=== PATIENT | male | born 1955 | race Caucasian/White ===

== ENCOUNTER 2017-08-28 08:12 | Emergency (ER) | payer OTHER ==
[2017-08-28] MEDS ORDERED: Ondansetron 4 MG/2 ML SDV IVPUSH ONE (08:16)
[2017-08-28] MEDS ORDERED: Promethazine 12.5 MG in Sodium Chloride 0.9% 50 ML IV STA (08:32)
--- NOTE | 2017-08-28 08:37 | EDM.PDOC ---
ED HPI GENERAL MEDICAL PROBLEM - General Chief Complaint: Syncope Stated Complaint: VOMITING Time Seen by Provider: 08/28/17 08:12 Source of Information: Reports: Patient, EMS, Family History Limitations: Reports: Altered Mental Status - History of Present Illness INITIAL COMMENTS - FREE TEXT/NARRATIVE: 62 y.o.w.m with H/O Hemophilia and CAD, is on Plavix. He was in the bathroom at midnight, passed out at about 3 am, fell and "bumped" his head. Son was called, tylenol was given. EMS was called at 7.30 am (?)He was brought by EMS due to severe nausea and vomiting. 4 mg of Zofran were given on Rout. No Chest pain. Pt had an appointment with cardiology today for f/u. As the pt arrived here in the ed by EMS, he was in his right lateral position and vomiting, ECG, ems., showed NSR. CT head was ordered STAT. BP was 138/72 plulse 72 temp 36.4 RR 22 Pulse ox 97% on RA, Family was present. Onset: Today Onset Date: 08/28/17 Onset Time: 07:00 Duration: Hour(s): Location: Reports: Head Quality: Reports: Other (N/V) Severity: Severe Improves with: Reports: Medication Worsens with: Reports: Movement Context: Reports: Trauma (Fell in the bathroom and hit his head, is on Plavix) Associated Symptoms: Reports: Headaches, Nausea/Vomiting Left Frontal Head Pain Score (Numeric/FACES): 8 Bilateral Abdominal Pain Score (Numeric/FACES): 9 - Related Data Allergies Allergy/AdvReac Type Severity Reaction Status Date / Time No Known Allergies Allergy Verified 08/28/17 08:26 Home Meds: Home Meds Aspirin [Halfprin] 81 mg PO DAILY 08/28/17 [History] Clopidogrel Bisulfate [Clopidogrel] 75 mg PO DAILY 08/28/17 [History] Isosorbide Mononitrate [Isosorbide Mononitrate ER] 30 mg PO DAILY 08/28/17 [ History] amLODIPine [Norvasc] 5 mg PO DAILY 08/28/17 [History] atorvaSTATin [Lipitor] 40 mg PO BEDTIME 08/28/17 [History] ED ROS GENERAL - Review of Systems Review Of Systems: Unable To Obtain ED EXAM, NEURO - Physical Exam Exam: See Below Exam Limited By: Altered Mental Status General Appearance: Alert, WD/WN, Lethargic Eye Exam: Bilateral Eye: Abnormal EOM Ears: Normal External Exam Nose: Normal Inspection Throat/Mouth: Normal Lips, Normal Oropharynx, No Airway Compromise, Other (pos gag reflex) Head Exam: Facial Swelling Neck: Normal Inspection, Supple, Non-Tender Respiratory/Chest: No Respiratory Distress, Lungs Clear, Normal Breath Sounds, No Accessory Muscle Use, Chest Non-Tender Cardiovascular: Normal Peripheral Pulses, Regular Rate, Rhythm, No Edema, No Gallop GI/Abdominal: Normal Bowel Sounds, Soft, Non-Tender, No Organomegaly, No Distention (Male) Exam: Deferred Rectal (Males) Exam: Deferred Neurological: Alert, Other (Cont N/V) Back Exam: Normal Inspection, Full Range of Motion Extremities: Normal Inspection, Normal Range of Motion, Non-Tender Psychiatric: Normal Affect, Normal Mood Skin Exam: Warm, Dry, Intact, Normal Color, No Rash Course - Vital Signs Text/Narrative:: 62 y.o.w.m with H/O Hemophilia and CAD, is on Plavix. He was in the bathroom at midnight, passed out at about 3 am, fell and "bumped" his head. Son was called, tylenol was given. EMS was called at 7.30 am (?)He was brought by EMS due to severe nausea and vomiting. 4 mg of Zofran were given on Rout. No Chest pain. Pt had an appointment with cardiology today for f/u. As the pt arrived here in the ed by EMS, he was in his right lateral position and vomiting, ECG, ems., showed NSR. CT head was ordered STAT. BP was 138/72 plulse 72 temp 36.4 RR 22 Pulse ox 97% on RA, Family was present. PE: WNWN W M with intermit vomiting in right sided lateral, stable, position. EOMI. Pos GAG, limited neuro exam. Labs: CBC BMP WNL with a Na of 139 and potassium of 3.6 INR 1.03 Imaging: CT head: supratentorial, large SD bleed with 7 mm Masseffect. CXR ETT in good position as per RAD Impression: Syncope, large Subdural bleed, left side, Masseffect 7 mm. H/O CAD with 5 stents placements Tx: Intubation, NG tube, FFP, Mannitol, Propophol, NS, 2 IV lines were in place 8.[address] Byrd, Neurosurgeon, [facility]: Plts, Factor 7 (not available), FFB and 100 gms of Mannitol 9.[address] Vargas, Heavy Mobile Equipment Operator, [facility]: Accepted the pt for admission to ICU Reexam: Improved, pt was intubated, NG tube was placed with low vol suction, family was present and kept UTD. Plan: Transfer to [facility]. Last Recorded V/S: Last Vital Signs Temp 36.4 C 08/28/17 09:24 Pulse 78 08/28/17 09:50 Resp 16 08/28/17 09:50 BP 120/74 08/28/17 09:50 Pulse Ox 100 08/28/17 09:50 - Orders/Labs/Meds Labs: Laboratory Tests 08/28/17 08/28/17 08/28/17 Range/Units 08:34 08:35 08:35 WBC 10.8 (4.5-12.0) X10-3/uL RBC 4.75 (4.30-5.75) x10(6)uL Hgb 13.6 (11.5-15.5) g/dL Hct 40.8 (30.0-51.3) % MCV 85.9 (80-96) fL MCH 28.6 (27.7-33.6) pg MCHC 33.3 (32.2-35.4) g/dL RDW 12.1 (11.5-15.5) % Plt Count 143 (125-369) X10(3)uL MPV 8.4 (7.4-10.4) fL Neut % (Auto) 83.4 H (46-82) % Lymph % (Auto) 8.6 L (13-37) % [place] % (Auto) 5.7 (4-12) % Eos % (Auto) 0 L (1.0-5.0) % Baso % (Auto) 2 (0-2) % Neut # (Auto) 9.1 H (1.6-8.3) # Lymph # (Auto) 0.9 (0.6-5.0) # [place] # (Auto) 0.6 (0.0-1.3) # Eos # (Auto) 0.0 (0.0-0.8) # Baso # (Auto) 0.2 (0.0-0.2) # PT 10.8 (8.7-11.1) INR 1.07 (0.89-1.13) Sodium (135-145) mmol/L Potassium (3.5-5.3) mmol/L Chloride (100-110) mmol/L Carbon Dioxide (21-32) mmol/L BUN (7-18) mg/dL Creatinine (0.70-1.30) mg/dL Est Cr Clr Drug Dosing mL/min Estimated GFR (MDRD) (>60) BUN/Creatinine Ratio (9-20) Glucose (80-116) mg/dL Lactic Acid (0.4-2.2) mmol/L Calcium (8.6-10.2) mg/dL Total Bilirubin (0.1-1.3) mg/dL Direct Bilirubin (0.10-0.20) mg/dL AST (5-25) IU/L ALT (12-36) U/L Alkaline Phosphatase (56-112) IU/L Troponin I (<0.017-0.056) ng/mL NT-Pro-B Natriuret Pep (<=125) pg/mL Total Protein (6.0-8.0) g/dL Albumin (3.2-4.6) g/dL Amylase (25-115) U/L Blood Type AB POSITIVE Gel Antibody Screen Negative 08/28/17 08/28/17 08/28/17 Range/Units 08:35 08:35 08:35 WBC (4.5-12.0) X10-3/uL RBC (4.30-5.75) x10(6)uL Hgb (11.5-15.5) g/dL Hct (30.0-51.3) % MCV (80-96) fL MCH (27.7-33.6) pg MCHC (32.2-35.4) g/dL RDW (11.5-15.5) % Plt Count (125-369) X10(3)uL MPV (7.4-10.4) fL Neut % (Auto) (46-82) % Lymph % (Auto) (13-37) % [place] % (Auto) (4-12) % Eos % (Auto) (1.0-5.0) % Baso % (Auto) (0-2) % Neut # (Auto) (1.6-8.3) # Lymph # (Auto) (0.6-5.0) # [place] # (Auto) (0.0-1.3) # Eos # (Auto) (0.0-0.8) # Baso # (Auto) (0.0-0.2) # PT (8.7-11.1) INR (0.89-1.13) Sodium 139 (135-145) mmol/L Potassium 3.6 (3.5-5.3) mmol/L Chloride 104 (100-110) mmol/L Carbon Dioxide 20 L (21-32) mmol/L BUN 17 (7-18) mg/dL Creatinine 0.9 (0.70-1.30) mg/dL Est Cr Clr Drug Dosing 94.94 mL/min Estimated GFR (MDRD) > 60 (>60) BUN/Creatinine Ratio 18.9 (9-20) Glucose 200 H (80-116) mg/dL Lactic Acid 2.5 H (0.4-2.2) mmol/L Calcium 9.3 (8.6-10.2) mg/dL Total Bilirubin 0.5 (0.1-1.3) mg/dL Direct Bilirubin 0.10 (0.10-0.20) mg/dL AST 21 (5-25) IU/L ALT 33 (12-36) U/L Alkaline Phosphatase 95 (56-112) IU/L Troponin I < 0.017 L (<0.017-0.056) ng/mL NT-Pro-B Natriuret Pep 393 H (<=125) pg/mL Total Protein 7.4 (6.0-8.0) g/dL Albumin 3.8 (3.2-4.6) g/dL Amylase 40 (25-115) U/L Blood Type Gel Antibody Screen Meds: Medications Discontinued Medications Generic Name Dose Route Start Last Admin Trade Name Freq PRN Reason Stop Dose Admin Fentanyl 100 mcg 08/28/17 09:17 08/28/17 09:17 Sublimaze IVPUSH 08/28/17 09:18 100 mcg ONETIME ONE Administration Promethazine HCl 12.5 mg/ 50.5 mls @ 200 mls/hr 08/28/17 08:32 08/28/17 08:51 Sodium Chloride IV 08/28/17 08:47 200 mls/hr ONETIME STA Administration Sodium Chloride 1,000 mls @ 125 mls/hr 08/28/17 08:45 08/28/17 08:59 Normal Saline IV 125 mls/hr ASDIRECTED MELINDA Administration Mannitol 500 mls @ 500 mls/hr 08/28/17 10:00 08/28/17 10:07 Mannitol 20% IV 08/28/17 10:59 500 mls/hr ONETIME ONE Administration Sodium Chloride 1,000 mls @ 125 mls/hr 08/28/17 12:00 08/28/17 09:50 Normal Saline IV 125 mls/hr ASDIRECTED MELINDA Administration Midazolam HCl 2 mg 08/28/17 09:17 08/28/17 09:17 Versed 1 Mg/Ml IVPUSH 08/28/17 09:18 2 mg ONETIME ONE Administration Ondansetron HCl 4 mg 08/28/17 08:16 08/28/17 08:20 Zofran IVPUSH 08/28/17 08:17 4 mg ONETIME ONE Administration Propofol 160 mg 08/28/17 09:17 08/28/17 09:17 Diprivan 20 Ml IVPUSH 08/28/17 09:18 160 mg ONETIME ONE Administration Rocuronium Williamson 0 mg 08/28/17 09:17 08/28/17 09:17 Rocuronium Williamson IVPUSH 08/28/17 09:18 50 mg ONETIME ONE Administration Departure - Departure Time of Disposition: 11:00 Disposition: DC/Tfer to Acute Hospital 02 Condition: Poor Clinical Impression: Subdural bleeding - Discharge Information Referrals: PCP,Not In Area [Primary Care Provider] - Forms: ED Department Discharge
[2017-08-28] MEDS ORDERED: Sodium Chloride 0.9% 1,000 ML IV SCH ×2 (08:45→12:00)
[2017-08-28] MEDS ORDERED: Succinylcholine 200 MG/10 ML MDV IV ONE (09:15)
[2017-08-28] MEDS ORDERED: Midazolam 1 MG/ML 2 ML SDV IVPUSH ONE (09:17)
[2017-08-28] MEDS ORDERED: fentaNYL 100 MCG/2 ML SDV IVPUSH ONE (09:17)
[2017-08-28] MEDS ORDERED: Rocuronium Bromide 50 MG/5 ML Syringe IVPUSH ONE (09:17)
[2017-08-28] MEDS ORDERED: Propofol 200 MG/20 ML SDV IVPUSH ONE (09:17)
[2017-08-28] MEDS ORDERED: Mannitol 12.5 GM/50 ML SDV IV STA (09:39)
[2017-08-28] MEDS ORDERED: [UNRECOGNIZED DRUG - OTHER] IV SCH (09:50)
[2017-08-28] MEDS ORDERED: Mannitol 500 ML IV ONE (10:00)
--- NOTE | 2017-08-28 10:36 | CR ---
INDICATION: Endotracheal tube placement. CHEST: An AP supine view of the chest was obtained for tube placement 2016 and compared with 12/02/2009, now revealing an endotracheal tube in adequate position at the level of the clavicular-manubrial joints. Poor inspiration is noted. A definite active infiltrate or effusion was not identified. IMPRESSION: Endotracheal tube in satisfactory position. Report was called to Anamaria in ER at 0938 hours, 08/28/2017. IMANID
[2017-08-28] MEDS ORDERED: Sodium Chloride 0.9% 250 ML IV SCH (12:30)
== END 2017-08-28 10:09 ==
LOC: FB.ED 08:12
DX: S06.5X0A Traumatic subdural hemorrhage without loss of consciousness, initial encounter (principal); Z79.82 Long term (current) use of aspirin; Z79.899 Other long term (current) drug therapy; W19.XXXA Unspecified fall, initial encounter
CPT/HCPCS: 36415; 36430; 70450; 71010; 72125; 80048; 80076; 82150; 83605; 83880; 84484; 85025; 85610; 86850; 86900; 86901; 96361; 96374; 96375; 99285; J2250; J2405; J2550; J2704; J3010; J7040; J7050; P9017; 96365; J0330

== ENCOUNTER 2017-10-04 08:50 | Inpatient (IN) | payer MEDICAID, OTHER ==
[2017-10-04] MEDS: Acetaminophen/Butalbital/Caffeine 325-50-40 MG Tab PO PRN (15:43)
[2017-10-04] MEDS: atorvaSTATin 40 MG Tab PO SCH (18:55)
[2017-10-04] MEDS: levETIRAcetam 500 MG Tab PO SCH (21:32)
[2017-10-04] MEDS: Metoprolol Tartrate 25 MG Tab PO SCH (21:33)
[2017-10-04] MEDS: Formoterol/Mometasone 200-5 MCG 8.8 GM Inhaler IH SCH (21:35)
[2017-10-05] MEDS: Aspirin 81 MG Tab.Chew PO SCH (08:36)
[2017-10-05] MEDS: Formoterol/Mometasone 200-5 MCG 8.8 GM Inhaler IH SCH ×2 (08:36→20:20)
[2017-10-05] MEDS: Isosorbide Mononitrate 30 MG Tab.ER PO SCH (08:38)
[2017-10-05] MEDS: Tamsulosin 0.4 MG Cap.ER PO SCH (08:38)
[2017-10-05] MEDS: levETIRAcetam 500 MG Tab PO SCH ×2 (08:39→20:21)
[2017-10-05] MEDS: Metoprolol Tartrate 25 MG Tab PO SCH ×2 (08:39→20:29)
[2017-10-05] MEDS: Clopidogrel 75 MG Tab PO SCH (08:40)
[2017-10-05] MEDS: amLODIPine 2.5 MG Tab PO SCH (08:40)
[2017-10-05] MEDS: Finasteride 5 MG Tab PO SCH (08:41)
[2017-10-05] MEDS: Acetaminophen/Butalbital/Caffeine 325-50-40 MG Tab PO PRN ×3 (08:49→20:37)
--- NOTE | 2017-10-05 10:01 | PCM.HP ---
H&P History of Present Illness - General Date of Service: 10/05/17 Admit Problem/Dx: Admission Diagnosis/Problem Admission Diagnosis/Problem Subdural hematoma Source of Information: Patient, Old Records History Limitations: Reports: No Limitations - History of Present Illness Initial Comments - Free Text/Narative: Patient admitted for rehabilitation after craniotomy from subdural hematoma. Was admitted to [facility] for evacuation of subdural hematoma after he fell at home and bumped his head. He has a history of CAD,with a drug leuting stent in July, hemophilia- that are stable previously Plavix. Patient underwent evaluation and hemicraniotomy on 28 August. Postoperatively he was weak has dysphagia and was admitted initially to the rehabilitation unit in [facility] and now being admitted here for swing bed with some physical and occupational needs. left head Pain Score (Numeric/FACES): 5 - Related Data Allergies/Adverse Reactions: Allergies Allergy/AdvReac Type Severity Reaction Status Date / Time No Known Allergies Allergy Verified 10/04/17 13:07 Home Medications: Home Meds Clopidogrel Bisulfate [Clopidogrel] 75 mg PO DAILY 08/28/17 [History] Isosorbide Mononitrate [Isosorbide Mononitrate ER] 30 mg PO DAILY 08/28/17 [ History] atorvaSTATin [Lipitor] 40 mg PO WITHDINNER 08/28/17 [History] Amitriptyline [Elavil] 50 mg PO BEDTIME 10/04/17 [History] Aspirin 81 mg PO DAILY 10/04/17 [History] Finasteride 5 mg PO DAILY 10/04/17 [History] Fluticasone/Salmeterol [Advair 250-50 Diskus] 1 puff IH BID 10/04/17 [History] Metoprolol Tartrate 12.5 mg PO BID 10/04/17 [History] Tamsulosin [Flomax] 0.4 mg PO DAILY 10/04/17 [History] amLODIPine Besylate [Amlodipine Besylate] 2.5 mg PO DAILY 10/04/17 [History] levETIRAcetam [Keppra] 750 mg PO BID 10/04/17 [History] Past Medical History - Past Health History Medical/Surgical History: Denies Medical/Surgical History Cardiovascular History: Reports: Afib, CAD, High Cholesterol, [place], Stents, Other (See Below) Other Cardiovascular History: acute non-ST elevation [place]; bradycardia Respiratory History: Reports: COPD, SOB Other Respiratory History: Unknown Gastrointestinal History: Reports: Other (See Below) Other Gastrointestinal History: Unknown Genitourinary History: Reports: Other (See Below) Other Genitourinary History: urinary retention Other Musculoskeletal History: Unknown Neurological History: Reports: Head Trauma, Other (See Below) Other Neuro History: left Decompressive hemicraniectomy Psychiatric History: Reports: Other (See Below) Other Psychiatric History: Unknown Other Endocrine/Metabolic History: Prediabetes Hematologic History: Reports: Other (See Below) 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 Immunologic History: Reports: Other (See Below) Other Immunologic History: unknown Oncologic (Cancer) History: Reports: Other (See Below) Other Oncologic History: Unknown Dermatologic History: Reports: Other (See Below) Other Dermatologic History: Unknown - Infectious Disease History Infectious Disease History: Reports: Other (See Below) Other Infectious Disease History: unknown - Past Surgical History Other Cardiovascular Surgeries/Procedures: Pt had stents put in over Thanksgiving and a follow up appt was scheduled for today. Other Respiratory Surgeries/Procedures: Pt has history of smoking and COPD which led to stent placement. Social & Family History - Family History Family Medical History: Noncontributory - Tobacco Use Smoking Status *Q: Former Smoker Years of Tobacco use: 35 Packs/Tins Daily: 1 Used Tobacco, but Quit: No - Caffeine Use Caffeine Use: Reports: Soda Other Caffeine Use: 1 can of soda Caffeine Use Comment: Unknown - Recreational Drug Use Recreational Drug Use: No H&P Review of Systems - Review of Systems: Review Of Systems: ROS reveals no pertinent complaints other than HPI. Exam - Exam Exam: See Below - Vital Signs Vital Signs: Last Vital Signs Temp 97.4 F 10/05/17 04:35 Pulse 70 10/05/17 08:39 Resp 20 10/05/17 04:35 BP 103/74 10/05/17 08:40 Pulse Ox 97 10/05/17 04:35 Weight: 83.824 kg - Exam General: Alert, Oriented, 4 HEENT: PERRLA Neck: Supple, Trachea Midline, 2 Lungs: Clear to Auscultation, Normal Respiratory Effort Cardiovascular: Regular Rate, Regular Rhythm GI/Abdominal Exam: Normal Bowel Sounds, Soft, Non-Tender, No Organomegaly, No Distention, No Abnormal Bruit, No Mass, Pelvis Stable (Male) Exam: No Hernia, Normal Inspection, Normal Prostate, Circumcised Rectal (Males) Exam: Normal Exam, Normal Rectal Tone, Prostate Normal Back Exam: Normal Inspection, Full Range of Motion, NT Extremities: Normal Inspection, Normal Range of Motion, Non-Tender, No Pedal Edema, Normal Capillary Refill Skin: Warm, Dry, Intact Neurological: Cranial Nerves Intact, Reflexes Equal Bilateral Neuro Extensive - Mental Status: Alert, Oriented x3, Normal Mood/Affect, Normal Cognition Neuro Extensive - Motor, Sensory, Reflexes: CN II-XII Intact, Normal Gait, Normal Reflexes Psychiatric: Alert, Normal Affect, Normal Mood *Q Meaningful Use (ADM) - VTE *Q VTE Criteria *Q: - Stroke *Q Stroke Criteria *Q: - AMI *Q AMI Criteria *Q: - Problem List (1) Status post craniotomy SNOMED Code(s): 366515488, 729390657 ICD Code: Z98.890 - OTHER SPECIFIED POSTPROCEDURAL STATES Status: Acute Current Visit: Yes (2) CAD (coronary artery disease) SNOMED Code(s): 68319846 ICD Code: I25.10 - ATHSCL HEART DISEASE OF [place] CORONARY ARTERY W/O ANG PCTRS Status: Acute Current Visit: Yes Qualifiers: Coronary Disease-Associated Artery/Lesion type: [place] artery (3) Hemophilia SNOMED Code(s): 73722718 ICD Code: D66 - HEREDITARY FACTOR VIII DEFICIENCY Status: Acute Current Visit: Yes (4) COPD (chronic obstructive pulmonary disease) SNOMED Code(s): 74399200 ICD Code: J44.9 - CHRONIC OBSTRUCTIVE PULMONARY DISEASE, UNSPECIFIED Status : Acute Current Visit: Yes (5) Afib SNOMED Code(s): 51421891 ICD Code: I48.91 - UNSPECIFIED ATRIAL FIBRILLATION Status: Acute Current Visit: Yes Qualifiers: Atrial fibrillation type: unspecified Qualified Code(s): I48.91 - Unspecified atrial fibrillation (6) HLD (hyperlipidemia) SNOMED Code(s): 70288345 ICD Code: E78.5 - HYPERLIPIDEMIA, UNSPECIFIED Status: Acute Current Visit : Yes Qualifiers: Hyperlipidemia type: unspecified Qualified Code(s): E78.5 - Hyperlipidemia , unspecified (7) Pre-diabetes SNOMED Code(s): 118283560 ICD Code: R73.03 - PREDIABETES Status: Acute Current Visit: Yes Problem List Initiated/Reviewed/Updated: Yes Orders Last 24hrs: Active Orders 24 hr Category Date Time Status Admission Status [Patient Status] [ADT] Routine ADT 10/04/17 11:08 Active RT Incentive Spirometry [RC] Q1HWA Care 10/04/17 15:37 Inactive OT Evaluation and Treatment [CONS] Routine Cons 10/04/17 11:37 Active PT Evaluation and Treatment [CONS] Routine Cons 10/04/17 11:37 Active Adult Diet [DIET] Diet 10/04/17 Dinner Active Acetaminophen/Butalbital/Caff [Fioricet 325-50-40 MG] Med 10/04/17 15:26 Active 2 tab PO Q4H PRN Amitriptyline [Elavil] Med 10/04/17 21:00 Active 50 mg PO BEDTIME Aspirin Med 10/05/17 09:00 Active 81 mg PO DAILY Clopidogrel [Plavix] Med 10/05/17 09:00 Active 75 mg PO DAILY Finasteride [Proscar] Med 10/05/17 09:00 Active 5 mg PO DAILY Isosorbide Mononitrate [Imdur] Med 10/05/17 09:00 Active 30 mg PO DAILY Metoprolol Tartrate [Lopressor] Med 10/04/17 21:00 Active 12.5 mg PO BID Mometasone/Formoterol [Dulera 200-5 MCG] Med 10/04/17 21:00 Active 2 puff IH BID Tamsulosin [Flomax] Med 10/05/17 09:00 Active 0.4 mg PO DAILY amLODIPine [Norvasc] Med 10/05/17 09:00 Active 2.5 mg PO DAILY atorvaSTATin [Lipitor] Med 10/04/17 18:00 Active 40 mg PO WITHDINNER levETIRAcetam [Keppra] Med 10/04/17 21:00 Active 750 mg PO BID Code Status [Resuscitation Status] Routine Resus Stat 10/04/17 13:46 Ordered Medication Orders Acetaminophen/Butalbital/Caffeine (Fioricet 325-50-40 Mg) 2 tab PO Q4H PRN PRN Reason: Headaches Last Admin: 10/05/17 08:49 Dose: 2 tab Admin: 10/04/17 15:43 Dose: 2 tab Amitriptyline HCl (Elavil) 50 mg PO BEDTIME [facility] Last Admin: 10/04/17 21:33 Dose: 50 mg Amlodipine Besylate (Norvasc) 2.5 mg PO DAILY [facility] Last Admin: 10/05/17 08:40 Dose: 2.5 mg Aspirin (Aspirin) 81 mg PO DAILY [facility] Last Admin: 10/05/17 08:36 Dose: 81 mg Atorvastatin Calcium (Lipitor) 40 mg PO WITHDINNER [facility] Last Admin: 10/04/17 18:55 Dose: 40 mg Clopidogrel Bisulfate (Plavix) 75 mg PO DAILY [facility] Last Admin: 10/05/17 08:40 Dose: 75 mg Finasteride (Proscar) 5 mg PO DAILY [facility] Last Admin: 10/05/17 08:41 Dose: 5 mg Isosorbide Mononitrate (Imdur) 30 mg PO DAILY [facility] Last Admin: 10/05/17 08:38 Dose: 30 mg Levetiracetam (Keppra) 750 mg PO BID [facility] Last Admin: 10/05/17 08:39 Dose: 750 mg Admin: 10/04/17 21:32 Dose: 750 mg Metoprolol Tartrate (Lopressor) 12.5 mg PO BID [facility] Last Admin: 10/05/17 08:39 Dose: 12.5 mg Admin: 10/04/17 21:33 Dose: 12.5 mg Mometasone Furoate/Formoterol Fumar (Dulera 200-5 Mcg) 2 puff IH BID [facility] Last Admin: 10/05/17 08:36 Dose: 2 puff Admin: 10/04/17 21:35 Dose: Tamsulosin HCl (Flomax) 0.4 mg PO DAILY [facility] Last Admin: 10/05/17 08:38 Dose: 0.4 mg Assessment/Plan Comment:: Patient is an excellent candidate for inpatient swing bed rehabilitation unit. We will Continue current medications from [facility]. Continue physical and occupational therapy.
[2017-10-05] MEDS: atorvaSTATin 40 MG Tab PO SCH (17:48)
[2017-10-06] MEDS: Acetaminophen/Butalbital/Caffeine 325-50-40 MG Tab PO PRN ×4 (07:57→23:42)
[2017-10-06] MEDS: Tamsulosin 0.4 MG Cap.ER PO SCH (08:00)
[2017-10-06] MEDS: Aspirin 81 MG Tab.Chew PO SCH (08:00)
[2017-10-06] MEDS: Formoterol/Mometasone 200-5 MCG 8.8 GM Inhaler IH SCH ×2 (08:00→20:04)
[2017-10-06] MEDS: Isosorbide Mononitrate 30 MG Tab.ER PO SCH (08:01)
[2017-10-06] MEDS: levETIRAcetam 500 MG Tab PO SCH ×2 (08:03→20:05)
[2017-10-06] MEDS: Metoprolol Tartrate 25 MG Tab PO SCH ×2 (08:04→20:06)
[2017-10-06] MEDS: amLODIPine 2.5 MG Tab PO SCH (08:04)
[2017-10-06] MEDS: Finasteride 5 MG Tab PO SCH (08:04)
[2017-10-06] MEDS: Clopidogrel 75 MG Tab PO SCH (08:04)
[2017-10-06] MEDS: atorvaSTATin 40 MG Tab PO SCH (18:24)
[2017-10-07] MEDS: Acetaminophen/Butalbital/Caffeine 325-50-40 MG Tab PO PRN ×4 (06:25→20:18)
[2017-10-07] MEDS: Tamsulosin 0.4 MG Cap.ER PO SCH (08:36)
[2017-10-07] MEDS: Formoterol/Mometasone 200-5 MCG 8.8 GM Inhaler IH SCH ×2 (08:36→20:12)
[2017-10-07] MEDS: Isosorbide Mononitrate 30 MG Tab.ER PO SCH (08:36)
[2017-10-07] MEDS: Aspirin 81 MG Tab.Chew PO SCH (08:36)
[2017-10-07] MEDS: amLODIPine 2.5 MG Tab PO SCH (08:38)
[2017-10-07] MEDS: Metoprolol Tartrate 25 MG Tab PO SCH ×2 (08:38→20:16)
[2017-10-07] MEDS: Finasteride 5 MG Tab PO SCH (08:39)
[2017-10-07] MEDS: Clopidogrel 75 MG Tab PO SCH (08:39)
[2017-10-07] MEDS: levETIRAcetam 500 MG Tab PO SCH ×2 (09:05→20:16)
[2017-10-07] MEDS: atorvaSTATin 40 MG Tab PO SCH (19:24)
[2017-10-08] MEDS: Acetaminophen/Butalbital/Caffeine 325-50-40 MG Tab PO PRN ×5 (00:40→20:12)
[2017-10-08] MEDS: Formoterol/Mometasone 200-5 MCG 8.8 GM Inhaler IH SCH ×2 (08:38→20:09)
[2017-10-08] MEDS: Aspirin 81 MG Tab.Chew PO SCH (08:38)
[2017-10-08] MEDS: Tamsulosin 0.4 MG Cap.ER PO SCH (08:39)
[2017-10-08] MEDS: Isosorbide Mononitrate 30 MG Tab.ER PO SCH (08:39)
[2017-10-08] MEDS: Clopidogrel 75 MG Tab PO SCH (08:40)
[2017-10-08] MEDS: amLODIPine 2.5 MG Tab PO SCH (08:40)
[2017-10-08] MEDS: levETIRAcetam 500 MG Tab PO SCH ×2 (08:40→20:10)
[2017-10-08] MEDS: Metoprolol Tartrate 25 MG Tab PO SCH ×2 (08:40→20:11)
[2017-10-08] MEDS: Finasteride 5 MG Tab PO SCH (08:41)
[2017-10-08] MEDS: atorvaSTATin 40 MG Tab PO SCH (18:25)
[2017-10-09] MEDS: Acetaminophen/Butalbital/Caffeine 325-50-40 MG Tab PO PRN ×5 (05:22→23:48)
[2017-10-09] MEDS: Aspirin 81 MG Tab.Chew PO SCH (09:03)
[2017-10-09] MEDS: Formoterol/Mometasone 200-5 MCG 8.8 GM Inhaler IH SCH ×2 (09:03→21:45)
[2017-10-09] MEDS: Isosorbide Mononitrate 30 MG Tab.ER PO SCH (09:04)
[2017-10-09] MEDS: Tamsulosin 0.4 MG Cap.ER PO SCH (09:04)
[2017-10-09] MEDS: levETIRAcetam 500 MG Tab PO SCH ×2 (09:04→21:47)
[2017-10-09] MEDS: Metoprolol Tartrate 25 MG Tab PO SCH ×2 (09:05→21:47)
[2017-10-09] MEDS: amLODIPine 2.5 MG Tab PO SCH (09:05)
[2017-10-09] MEDS: Finasteride 5 MG Tab PO SCH (09:06)
[2017-10-09] MEDS: Clopidogrel 75 MG Tab PO SCH (09:06)
[2017-10-09] MEDS: Trolamine Salicylate/Aloe Vera 10% Crm 85 GM Tube TOP PRN (18:06)
[2017-10-09] MEDS: atorvaSTATin 40 MG Tab PO SCH (18:08)
[2017-10-09] MEDS: Magnesium Hydroxide 400 MG/5 ML Susp 30 ML Cup PO PRN (22:11)
[2017-10-10] MEDS: Acetaminophen/Butalbital/Caffeine 325-50-40 MG Tab PO PRN ×3 (08:18→18:19)
[2017-10-10] MEDS: Formoterol/Mometasone 200-5 MCG 8.8 GM Inhaler IH SCH ×2 (08:20→20:13)
[2017-10-10] MEDS: Aspirin 81 MG Tab.Chew PO SCH (08:20)
[2017-10-10] MEDS: Isosorbide Mononitrate 30 MG Tab.ER PO SCH (08:21)
[2017-10-10] MEDS: Metoprolol Tartrate 25 MG Tab PO SCH ×2 (08:21→20:15)
[2017-10-10] MEDS: levETIRAcetam 500 MG Tab PO SCH ×2 (08:21→20:14)
[2017-10-10] MEDS: Tamsulosin 0.4 MG Cap.ER PO SCH (08:21)
[2017-10-10] MEDS: amLODIPine 2.5 MG Tab PO SCH (08:22)
[2017-10-10] MEDS: Finasteride 5 MG Tab PO SCH (08:22)
[2017-10-10] MEDS: Clopidogrel 75 MG Tab PO SCH (08:22)
[2017-10-10] MEDS: atorvaSTATin 40 MG Tab PO SCH (18:20)
[2017-10-11] MEDS: Acetaminophen/Butalbital/Caffeine 325-50-40 MG Tab PO PRN ×5 (00:43→21:53)
[2017-10-11] MEDS: Clopidogrel 75 MG Tab PO SCH (09:42)
[2017-10-11] MEDS: Finasteride 5 MG Tab PO SCH (09:42)
[2017-10-11] MEDS: Tamsulosin 0.4 MG Cap.ER PO SCH (09:42)
[2017-10-11] MEDS: Aspirin 81 MG Tab.Chew PO SCH (09:42)
[2017-10-11] MEDS: levETIRAcetam 500 MG Tab PO SCH ×2 (09:43→20:03)
[2017-10-11] MEDS: amLODIPine 2.5 MG Tab PO SCH (09:43)
[2017-10-11] MEDS: Isosorbide Mononitrate 30 MG Tab.ER PO SCH (09:43)
[2017-10-11] MEDS: Formoterol/Mometasone 200-5 MCG 8.8 GM Inhaler IH SCH ×2 (09:43→20:02)
[2017-10-11] MEDS: Metoprolol Tartrate 25 MG Tab PO SCH ×2 (09:44→20:04)
[2017-10-11] MEDS: Trolamine Salicylate/Aloe Vera 10% Crm 85 GM Tube TOP PRN ×2 (17:50→23:41)
[2017-10-11] MEDS: atorvaSTATin 40 MG Tab PO SCH (18:10)
[2017-10-12] MEDS: Acetaminophen/Butalbital/Caffeine 325-50-40 MG Tab PO PRN ×4 (04:55→22:05)
[2017-10-12] MEDS: Tamsulosin 0.4 MG Cap.ER PO SCH (08:42)
[2017-10-12] MEDS: Aspirin 81 MG Tab.Chew PO SCH (08:42)
[2017-10-12] MEDS: Isosorbide Mononitrate 30 MG Tab.ER PO SCH (08:42)
[2017-10-12] MEDS: levETIRAcetam 500 MG Tab PO SCH ×2 (08:44→20:45)
[2017-10-12] MEDS: Formoterol/Mometasone 200-5 MCG 8.8 GM Inhaler IH SCH ×2 (08:45→20:44)
[2017-10-12] MEDS: Metoprolol Tartrate 25 MG Tab PO SCH ×2 (08:45→20:45)
[2017-10-12] MEDS: Finasteride 5 MG Tab PO SCH (08:45)
[2017-10-12] MEDS: Clopidogrel 75 MG Tab PO SCH (08:45)
[2017-10-12] MEDS: Trolamine Salicylate/Aloe Vera 10% Crm 85 GM Tube TOP PRN (14:13)
[2017-10-12] MEDS: atorvaSTATin 40 MG Tab PO SCH (17:56)
[2017-10-13] MEDS: Acetaminophen/Butalbital/Caffeine 325-50-40 MG Tab PO PRN ×3 (02:35→23:13)
[2017-10-13] MEDS: Tamsulosin 0.4 MG Cap.ER PO SCH (09:58)
[2017-10-13] MEDS: Isosorbide Mononitrate 30 MG Tab.ER PO SCH (09:58)
[2017-10-13] MEDS: Aspirin 81 MG Tab.Chew PO SCH (09:58)
[2017-10-13] MEDS: Formoterol/Mometasone 200-5 MCG 8.8 GM Inhaler IH SCH ×2 (09:58→20:15)
[2017-10-13] MEDS: Finasteride 5 MG Tab PO SCH (09:58)
[2017-10-13] MEDS: Clopidogrel 75 MG Tab PO SCH (09:58)
[2017-10-13] MEDS: levETIRAcetam 500 MG Tab PO SCH ×2 (09:59→20:16)
[2017-10-13] MEDS: Metoprolol Tartrate 25 MG Tab PO SCH ×2 (09:59→20:16)
[2017-10-13] MEDS: atorvaSTATin 40 MG Tab PO SCH (18:22)
[2017-10-13] MEDS: Magnesium Hydroxide 400 MG/5 ML Susp 30 ML Cup PO PRN (20:22)
[2017-10-13] MEDS: Bisacodyl 10 MG Supp RECTAL PRN (23:13)
[2017-10-14] MEDS: Formoterol/Mometasone 200-5 MCG 8.8 GM Inhaler IH SCH ×2 (08:38→21:01)
[2017-10-14] MEDS: Aspirin 81 MG Tab.Chew PO SCH (08:38)
[2017-10-14] MEDS: Tamsulosin 0.4 MG Cap.ER PO SCH (08:39)
[2017-10-14] MEDS: levETIRAcetam 500 MG Tab PO SCH ×2 (08:39→21:01)
[2017-10-14] MEDS: Isosorbide Mononitrate 30 MG Tab.ER PO SCH (08:39)
[2017-10-14] MEDS: Metoprolol Tartrate 25 MG Tab PO SCH ×2 (08:39→21:03)
[2017-10-14] MEDS: Clopidogrel 75 MG Tab PO SCH (08:39)
[2017-10-14] MEDS: Finasteride 5 MG Tab PO SCH (08:40)
--- NOTE | 2017-10-14 08:54 | PCM.PN ---
- General Info Date of Service: 10/14/17 Admission Dx/Problem (Free Text): Patient states his right arm and right leg strength is improving. Has had is doing well without headaches. - Patient Data Vitals - Most Recent: Last Vital Signs Temp 97.7 F 10/14/17 07:50 Pulse 70 10/14/17 08:39 Resp 18 10/14/17 07:50 BP 109/70 10/14/17 08:39 Pulse Ox 98 10/14/17 07:50 Weight - Most Recent: 183 lb 11.2 oz Med Orders - Current: Current Medications Acetaminophen/Butalbital/Caffeine (Fioricet 325-50-40 Mg) 2 tab PO Q4H PRN PRN Reason: Headaches Last Admin: 10/13/17 23:13 Dose: 2 tab Amitriptyline HCl (Elavil) 50 mg PO BEDTIME [facility] Last Admin: 10/13/17 20:16 Dose: 50 mg Aspirin (Aspirin) 81 mg PO DAILY [facility] Last Admin: 10/14/17 08:38 Dose: 81 mg Atorvastatin Calcium (Lipitor) 40 mg PO WITHDINNER [facility] Last Admin: 10/13/17 18:22 Dose: 40 mg Bisacodyl (Dulcolax) 10 mg RECTAL DAILY PRN PRN Reason: Constipation Last Admin: 10/13/17 23:13 Dose: 10 mg Clopidogrel Bisulfate (Plavix) 75 mg PO DAILY [facility] Last Admin: 10/14/17 08:39 Dose: 75 mg Finasteride (Proscar) 5 mg PO DAILY [facility] Last Admin: 10/14/17 08:40 Dose: 5 mg Isosorbide Mononitrate (Imdur) 30 mg PO DAILY [facility] Last Admin: 10/14/17 08:39 Dose: 30 mg Levetiracetam (Keppra) 750 mg PO BID [facility] Last Admin: 10/14/17 08:39 Dose: 750 mg Magnesium Hydroxide (Milk Of Magnesia) 30 ml PO DAILY PRN PRN Reason: Constipation Last Admin: 10/13/17 20:22 Dose: 30 ml Metoprolol Tartrate (Lopressor) 12.5 mg PO BID [facility] Last Admin: 10/14/17 08:39 Dose: 12.5 mg Mometasone Furoate/Formoterol Fumar (Dulera 200-5 Mcg) 2 puff IH BID [facility] Last Admin: 10/14/17 08:38 Dose: 2 puff Tamsulosin HCl (Flomax) 0.4 mg PO DAILY [facility] Last Admin: 10/14/17 08:39 Dose: 0.4 mg Trolamine Salicylate (Aspercreme 10%) 0 gm TOP QID PRN PRN Reason: NECK PAIN Last Admin: 10/12/17 14:13 Dose: 1 applic Discontinued Medications Amlodipine Besylate (Norvasc) 2.5 mg PO DAILY [facility] Last Admin: 10/11/17 09:43 Dose: 2.5 mg - Exam General: Alert, Oriented, Cooperative Cardiovascular: Regular Rate, Regular Rhythm Extremities: Other (Weakness right arm) - Problem List & Annotations (1) Status post craniotomy SNOMED Code(s): 606355465, 738083372 Code(s): Z98.890 - OTHER SPECIFIED POSTPROCEDURAL STATES Status: Acute Current Visit: Yes - Problem List Review Problem List Initiated/Reviewed/Updated: Yes - Plan Plan:: Continue current care.
[2017-10-14] MEDS: Trolamine Salicylate/Aloe Vera 10% Crm 85 GM Tube TOP PRN (14:13)
[2017-10-14] MEDS: Acetaminophen/Butalbital/Caffeine 325-50-40 MG Tab PO PRN ×2 (14:13→21:01)
[2017-10-14] MEDS: atorvaSTATin 40 MG Tab PO SCH (17:50)
[2017-10-15] MEDS: Aspirin 81 MG Tab.Chew PO SCH (08:31)
[2017-10-15] MEDS: Tamsulosin 0.4 MG Cap.ER PO SCH (08:33)
[2017-10-15] MEDS: Isosorbide Mononitrate 30 MG Tab.ER PO SCH (08:35)
[2017-10-15] MEDS: levETIRAcetam 500 MG Tab PO SCH ×2 (08:37→20:10)
[2017-10-15] MEDS: Metoprolol Tartrate 25 MG Tab PO SCH ×2 (08:38→20:11)
[2017-10-15] MEDS: Clopidogrel 75 MG Tab PO SCH (08:40)
[2017-10-15] MEDS: Finasteride 5 MG Tab PO SCH (08:41)
[2017-10-15] MEDS: atorvaSTATin 40 MG Tab PO SCH (18:09)
[2017-10-15] MEDS: Formoterol/Mometasone 200-5 MCG 8.8 GM Inhaler IH SCH (20:09)
[2017-10-15] MEDS: Acetaminophen/Butalbital/Caffeine 325-50-40 MG Tab PO PRN (20:11)
[2017-10-15] MEDS: Trolamine Salicylate/Aloe Vera 10% Crm 85 GM Tube TOP PRN (20:14)
[2017-10-16] MEDS: Aspirin 81 MG Tab.Chew PO SCH (08:34)
[2017-10-16] MEDS: Tamsulosin 0.4 MG Cap.ER PO SCH (08:34)
[2017-10-16] MEDS: Isosorbide Mononitrate 30 MG Tab.ER PO SCH (08:35)
[2017-10-16] MEDS: levETIRAcetam 500 MG Tab PO SCH ×2 (08:35→20:04)
[2017-10-16] MEDS: Metoprolol Tartrate 25 MG Tab PO SCH ×2 (08:36→20:05)
[2017-10-16] MEDS: Clopidogrel 75 MG Tab PO SCH (08:37)
[2017-10-16] MEDS: Finasteride 5 MG Tab PO SCH (08:37)
[2017-10-16] MEDS: Formoterol/Mometasone 200-5 MCG 8.8 GM Inhaler IH SCH ×2 (08:38→20:04)
[2017-10-16] MEDS: Trolamine Salicylate/Aloe Vera 10% Crm 85 GM Tube TOP PRN ×2 (12:05→17:07)
[2017-10-16] MEDS: Acetaminophen/Butalbital/Caffeine 325-50-40 MG Tab PO PRN ×2 (14:45→20:07)
[2017-10-16] MEDS: atorvaSTATin 40 MG Tab PO SCH (17:07)
[2017-10-17] MEDS: Tamsulosin 0.4 MG Cap.ER PO SCH (08:12)
[2017-10-17] MEDS: Finasteride 5 MG Tab PO SCH (08:12)
[2017-10-17] MEDS: Clopidogrel 75 MG Tab PO SCH (08:12)
[2017-10-17] MEDS: Formoterol/Mometasone 200-5 MCG 8.8 GM Inhaler IH SCH ×2 (08:12→21:36)
[2017-10-17] MEDS: Aspirin 81 MG Tab.Chew PO SCH (08:12)
[2017-10-17] MEDS: levETIRAcetam 500 MG Tab PO SCH ×2 (08:12→21:37)
[2017-10-17] MEDS: Isosorbide Mononitrate 30 MG Tab.ER PO SCH (08:13)
[2017-10-17] MEDS: Metoprolol Tartrate 25 MG Tab PO SCH ×2 (08:13→21:36)
[2017-10-17] MEDS: Acetaminophen/Butalbital/Caffeine 325-50-40 MG Tab PO PRN ×3 (09:51→21:38)
[2017-10-17] MEDS ORDERED: Isosorbide Mononitrate 30 MG Tab.ER PO SCH (18:08)
--- NOTE | 2017-10-17 18:09 | PCM.SN ---
- Free Text/Narrative Note: Patient complaint headache and swelling in the left side of his head. I evaluated him and swelling is minimal. He has a flat spot of his head were subdural was and is not filling up. He says the pain is gone. He states that was blood pressure was below 90 which happens a lot then he has problems. I will decrease his Imdur to 15 mg a day.
[2017-10-17] MEDS: atorvaSTATin 40 MG Tab PO SCH (18:29)
[2017-10-18] MEDS: Formoterol/Mometasone 200-5 MCG 8.8 GM Inhaler IH SCH (08:59)
[2017-10-18] MEDS: Aspirin 81 MG Tab.Chew PO SCH (08:59)
[2017-10-18] MEDS: Finasteride 5 MG Tab PO SCH (09:00)
[2017-10-18] MEDS: Isosorbide Mononitrate 30 MG Tab.ER PO SCH (09:00)
[2017-10-18] MEDS: levETIRAcetam 500 MG Tab PO SCH ×2 (09:01→20:08)
[2017-10-18] MEDS: Clopidogrel 75 MG Tab PO SCH (09:01)
[2017-10-18] MEDS: Tamsulosin 0.4 MG Cap.ER PO SCH (09:01)
[2017-10-18] MEDS: Metoprolol Tartrate 25 MG Tab PO SCH ×2 (09:01→20:08)
[2017-10-18] MEDS: Acetaminophen/Butalbital/Caffeine 325-50-40 MG Tab PO PRN ×2 (14:05→20:09)
[2017-10-18] MEDS: atorvaSTATin 40 MG Tab PO SCH (17:48)
[2017-10-19] MEDS: Aspirin 81 MG Tab.Chew PO SCH (09:10)
[2017-10-19] MEDS: Metoprolol Tartrate 25 MG Tab PO SCH ×2 (09:11→20:01)
[2017-10-19] MEDS: Tamsulosin 0.4 MG Cap.ER PO SCH (09:11)
[2017-10-19] MEDS: levETIRAcetam 500 MG Tab PO SCH ×2 (09:11→20:00)
[2017-10-19] MEDS: Isosorbide Mononitrate 30 MG Tab.ER PO SCH (09:11)
[2017-10-19] MEDS: Acetaminophen/Butalbital/Caffeine 325-50-40 MG Tab PO PRN ×3 (09:12→20:02)
[2017-10-19] MEDS: Finasteride 5 MG Tab PO SCH (09:12)
[2017-10-19] MEDS: Clopidogrel 75 MG Tab PO SCH (09:12)
[2017-10-19] MEDS: atorvaSTATin 40 MG Tab PO SCH (18:22)
[2017-10-20] MEDS: Aspirin 81 MG Tab.Chew PO SCH (08:57)
[2017-10-20] MEDS: levETIRAcetam 500 MG Tab PO SCH ×2 (08:58→20:08)
[2017-10-20] MEDS: Isosorbide Mononitrate 30 MG Tab.ER PO SCH (08:58)
[2017-10-20] MEDS: Metoprolol Tartrate 25 MG Tab PO SCH ×2 (08:58→20:09)
[2017-10-20] MEDS: Tamsulosin 0.4 MG Cap.ER PO SCH (08:58)
[2017-10-20] MEDS: Clopidogrel 75 MG Tab PO SCH (08:59)
[2017-10-20] MEDS: Acetaminophen/Butalbital/Caffeine 325-50-40 MG Tab PO PRN ×3 (08:59→19:27)
[2017-10-20] MEDS: Finasteride 5 MG Tab PO SCH (08:59)
[2017-10-20] MEDS: atorvaSTATin 40 MG Tab PO SCH (18:04)
[2017-10-20] MEDS: Trolamine Salicylate/Aloe Vera 10% Crm 85 GM Tube TOP PRN (20:10)
[2017-10-21] MEDS: Acetaminophen/Butalbital/Caffeine 325-50-40 MG Tab PO PRN ×3 (03:18→20:49)
[2017-10-21] MEDS: levETIRAcetam 500 MG Tab PO SCH ×2 (08:45→20:48)
[2017-10-21] MEDS: Finasteride 5 MG Tab PO SCH (08:46)
[2017-10-21] MEDS: Tamsulosin 0.4 MG Cap.ER PO SCH (08:46)
[2017-10-21] MEDS: Isosorbide Mononitrate 30 MG Tab.ER PO SCH (08:46)
[2017-10-21] MEDS: Metoprolol Tartrate 25 MG Tab PO SCH ×2 (08:46→20:48)
[2017-10-21] MEDS: Clopidogrel 75 MG Tab PO SCH (08:46)
[2017-10-21] MEDS: Aspirin 81 MG Tab.Chew PO SCH (08:46)
[2017-10-21] MEDS: Trolamine Salicylate/Aloe Vera 10% Crm 85 GM Tube TOP PRN (15:19)
[2017-10-21] MEDS: atorvaSTATin 40 MG Tab PO SCH (17:54)
[2017-10-22] MEDS: levETIRAcetam 500 MG Tab PO SCH ×2 (08:56→20:59)
[2017-10-22] MEDS: Aspirin 81 MG Tab.Chew PO SCH (08:56)
[2017-10-22] MEDS: Tamsulosin 0.4 MG Cap.ER PO SCH (08:56)
[2017-10-22] MEDS: Clopidogrel 75 MG Tab PO SCH (08:57)
[2017-10-22] MEDS: Finasteride 5 MG Tab PO SCH (08:57)
[2017-10-22] MEDS: Isosorbide Mononitrate 30 MG Tab.ER PO SCH (10:20)
[2017-10-22] MEDS: Metoprolol Tartrate 25 MG Tab PO SCH (10:21)
[2017-10-22] MEDS: Acetaminophen/Butalbital/Caffeine 325-50-40 MG Tab PO PRN ×3 (12:10→22:25)
[2017-10-22] MEDS: Trolamine Salicylate/Aloe Vera 10% Crm 85 GM Tube TOP PRN (15:27)
[2017-10-22] MEDS: atorvaSTATin 40 MG Tab PO SCH (17:59)
[2017-10-23] MEDS: Acetaminophen/Butalbital/Caffeine 325-50-40 MG Tab PO PRN ×4 (02:51→20:34)
[2017-10-23] MEDS: levETIRAcetam 500 MG Tab PO SCH ×2 (09:14→20:35)
[2017-10-23] MEDS: Tamsulosin 0.4 MG Cap.ER PO SCH (09:14)
[2017-10-23] MEDS: Aspirin 81 MG Tab.Chew PO SCH (09:14)
[2017-10-23] MEDS: Finasteride 5 MG Tab PO SCH (09:15)
[2017-10-23] MEDS: Clopidogrel 75 MG Tab PO SCH (09:15)
[2017-10-23] MEDS: Trolamine Salicylate/Aloe Vera 10% Crm 85 GM Tube TOP PRN (09:18)
[2017-10-23] MEDS: Isosorbide Mononitrate 30 MG Tab.ER PO SCH (09:20)
[2017-10-23] MEDS: Metoprolol Tartrate 25 MG Tab PO SCH (09:20)
[2017-10-23] MEDS: atorvaSTATin 40 MG Tab PO SCH (18:48)
[2017-10-23] MEDS: Bisacodyl 10 MG Supp RECTAL PRN (18:50)
[2017-10-24] MEDS: levETIRAcetam 500 MG Tab PO SCH ×2 (08:26→20:18)
[2017-10-24] MEDS: Clopidogrel 75 MG Tab PO SCH (08:26)
[2017-10-24] MEDS: Tamsulosin 0.4 MG Cap.ER PO SCH (08:26)
[2017-10-24] MEDS: Finasteride 5 MG Tab PO SCH (08:26)
[2017-10-24] MEDS: Aspirin 81 MG Tab.Chew PO SCH (08:26)
[2017-10-24] MEDS: atorvaSTATin 40 MG Tab PO SCH (18:12)
[2017-10-24] MEDS: Acetaminophen/Butalbital/Caffeine 325-50-40 MG Tab PO PRN (18:12)
[2017-10-25] MEDS: levETIRAcetam 500 MG Tab PO SCH ×2 (08:06→20:29)
[2017-10-25] MEDS: Aspirin 81 MG Tab.Chew PO SCH (08:06)
[2017-10-25] MEDS: Tamsulosin 0.4 MG Cap.ER PO SCH (08:06)
[2017-10-25] MEDS: Clopidogrel 75 MG Tab PO SCH (08:07)
[2017-10-25] MEDS: Finasteride 5 MG Tab PO SCH (08:07)
[2017-10-25] MEDS: atorvaSTATin 40 MG Tab PO SCH (17:20)
[2017-10-25] MEDS: Bisacodyl 10 MG Supp RECTAL PRN (18:15)
[2017-10-25] MEDS: Acetaminophen/Butalbital/Caffeine 325-50-40 MG Tab PO PRN (20:29)
[2017-10-26] MEDS: levETIRAcetam 500 MG Tab PO SCH ×2 (08:29→21:15)
[2017-10-26] MEDS: Aspirin 81 MG Tab.Chew PO SCH (08:30)
[2017-10-26] MEDS: Clopidogrel 75 MG Tab PO SCH (08:30)
[2017-10-26] MEDS: Finasteride 5 MG Tab PO SCH (08:30)
[2017-10-26] MEDS: Tamsulosin 0.4 MG Cap.ER PO SCH (08:30)
[2017-10-26] MEDS: Polyethylene Glycol 3350 Powder 17 GM Packet PO SCH (09:00)
[2017-10-26] MEDS: Acetaminophen/Butalbital/Caffeine 325-50-40 MG Tab PO PRN ×3 (14:33→22:16)
[2017-10-26] MEDS: atorvaSTATin 40 MG Tab PO SCH (18:16)
[2017-10-26] MEDS: Trolamine Salicylate/Aloe Vera 10% Crm 85 GM Tube TOP PRN ×2 (18:20→21:17)
[2017-10-27] MEDS: levETIRAcetam 500 MG Tab PO SCH ×2 (09:34→21:44)
[2017-10-27] MEDS: Aspirin 81 MG Tab.Chew PO SCH (09:34)
[2017-10-27] MEDS: Tamsulosin 0.4 MG Cap.ER PO SCH (09:34)
[2017-10-27] MEDS: Finasteride 5 MG Tab PO SCH (09:35)
[2017-10-27] MEDS: Clopidogrel 75 MG Tab PO SCH (09:35)
[2017-10-27] MEDS: Polyethylene Glycol 3350 Powder 17 GM Packet PO SCH (09:35)
[2017-10-27] MEDS: atorvaSTATin 40 MG Tab PO SCH (17:38)
[2017-10-27] MEDS: Acetaminophen/Butalbital/Caffeine 325-50-40 MG Tab PO PRN (21:49)
[2017-10-28] MEDS: Tamsulosin 0.4 MG Cap.ER PO SCH (08:03)
[2017-10-28] MEDS: levETIRAcetam 500 MG Tab PO SCH ×2 (08:03→20:03)
[2017-10-28] MEDS: Aspirin 81 MG Tab.Chew PO SCH (08:03)
[2017-10-28] MEDS: Finasteride 5 MG Tab PO SCH (08:04)
[2017-10-28] MEDS: Polyethylene Glycol 3350 Powder 17 GM Packet PO SCH (08:04)
[2017-10-28] MEDS: Clopidogrel 75 MG Tab PO SCH (08:04)
[2017-10-28] MEDS: Acetaminophen/Butalbital/Caffeine 325-50-40 MG Tab PO PRN ×3 (11:10→20:07)
[2017-10-28] MEDS: Trolamine Salicylate/Aloe Vera 10% Crm 85 GM Tube TOP PRN (15:07)
[2017-10-28] MEDS: atorvaSTATin 40 MG Tab PO SCH (18:12)
[2017-10-29] MEDS: Aspirin 81 MG Tab.Chew PO SCH (08:29)
[2017-10-29] MEDS: Tamsulosin 0.4 MG Cap.ER PO SCH (08:30)
[2017-10-29] MEDS: levETIRAcetam 500 MG Tab PO SCH ×2 (08:30→21:14)
[2017-10-29] MEDS: Polyethylene Glycol 3350 Powder 17 GM Packet PO SCH (08:32)
[2017-10-29] MEDS: Clopidogrel 75 MG Tab PO SCH (08:32)
[2017-10-29] MEDS: Finasteride 5 MG Tab PO SCH (08:33)
[2017-10-29] MEDS: Trolamine Salicylate/Aloe Vera 10% Crm 85 GM Tube TOP PRN ×2 (14:07→21:16)
[2017-10-29] MEDS: atorvaSTATin 40 MG Tab PO SCH (18:20)
[2017-10-29] MEDS: Acetaminophen/Butalbital/Caffeine 325-50-40 MG Tab PO PRN (21:15)
[2017-10-30] MEDS: Aspirin 81 MG Tab.Chew PO SCH (09:22)
[2017-10-30] MEDS: Tamsulosin 0.4 MG Cap.ER PO SCH (09:22)
[2017-10-30] MEDS: levETIRAcetam 500 MG Tab PO SCH ×2 (09:22→20:54)
[2017-10-30] MEDS: Finasteride 5 MG Tab PO SCH (09:23)
[2017-10-30] MEDS: Clopidogrel 75 MG Tab PO SCH (09:23)
[2017-10-30] MEDS: Polyethylene Glycol 3350 Powder 17 GM Packet PO SCH (09:23)
[2017-10-30] MEDS: Acetaminophen/Butalbital/Caffeine 325-50-40 MG Tab PO PRN (13:44)
[2017-10-30] MEDS ORDERED: Nitroglycerin 0.4 MG Tab.SL SL PRN (13:50)
[2017-10-30] MEDS ORDERED: Nitroglycerin 0.4 MG Tab.SL ONE (13:51)
[2017-10-30] MEDS ORDERED: Ketorolac 60 MG/2 ML SDV IM ONE (14:07)
--- NOTE | 2017-10-30 16:42 | PCM.PN ---
- General Info Date of Service: 10/30/17 Admission Dx/Problem (Free Text): Patient states his right arm and right leg strength is improving. Has had is doing well without headaches. Subjective Update: Since admission March that pain in the chest area sometimes this the neck with a previous negative EKG. Today had similar symptoms with pain in the low the left breast. The neck and sometimes having shortness of breath. He was given nitroglycerin and ketorolac that only helped minimally. He has a history of chronic disease with stents in July. He had craniotomy in August after trauma. The time of this exam he complains of no pain. He denies any fever cough nausea or vomiting. - Review of Systems Gastrointestinal: Reports: No Symptoms Genitourinary: Reports: No Symptoms Musculoskeletal: Reports: No Symptoms Neurological: Reports: No Symptoms - Patient Data Vitals - Most Recent: Last Vital Signs Temp 97.5 F 10/30/17 15:44 Pulse 64 10/30/17 15:44 Resp 16 10/30/17 15:44 BP 129/77 10/30/17 15:44 Pulse Ox 100 10/30/17 15:44 Weight - Most Recent: 85.121 kg I&O - Last 24 Hours: Intake & Output 10/30/17 10/30/17 10/30/17 06:59 14:59 22:59 Intake Total 100 Balance 100 Med Orders - Current: Current Medications Acetaminophen/Butalbital/Caffeine (Fioricet 325-50-40 Mg) 2 tab PO Q4H PRN PRN Reason: Headaches Last Admin: 10/30/17 13:44 Dose: 2 tab Amitriptyline HCl (Elavil) 50 mg PO BEDTIME [facility] Last Admin: 10/29/17 21:15 Dose: 50 mg Aspirin (Aspirin) 81 mg PO DAILY [facility] Last Admin: 10/30/17 09:22 Dose: 81 mg Atorvastatin Calcium (Lipitor) 40 mg PO WITHDINNER [facility] Last Admin: 10/29/17 18:20 Dose: 40 mg Bisacodyl (Dulcolax) 10 mg RECTAL DAILY PRN PRN Reason: Constipation Last Admin: 10/25/17 18:15 Dose: 10 mg Clopidogrel Bisulfate (Plavix) 75 mg PO DAILY [facility] Last Admin: 10/30/17 09:23 Dose: 75 mg Finasteride (Proscar) 5 mg PO DAILY [facility] Last Admin: 10/30/17 09:23 Dose: 5 mg Levetiracetam (Keppra) 750 mg PO BID [facility] Last Admin: 10/30/17 09:22 Dose: 750 mg Nitroglycerin (Nitrostat) 0.4 mg SL Q5M PRN PRN Reason: Chest Pain Last Admin: 10/30/17 13:50 Dose: 0.4 mg Polyethylene Glycol (Miralax) 17 gm PO DAILY [facility] Last Admin: 10/30/17 09:23 Dose: 17 gm Tamsulosin HCl (Flomax) 0.4 mg PO DAILY [facility] Last Admin: 10/30/17 09:22 Dose: 0.4 mg Trolamine Salicylate (Aspercreme 10%) 0 gm TOP QID PRN PRN Reason: NECK PAIN Last Admin: 10/29/17 21:16 Dose: 1 applic Discontinued Medications Amlodipine Besylate (Norvasc) 2.5 mg PO DAILY [facility] Last Admin: 10/11/17 09:43 Dose: 2.5 mg Isosorbide Mononitrate (Imdur) 30 mg PO DAILY [facility] Last Admin: 10/17/17 08:13 Dose: 30 mg Isosorbide Mononitrate (Imdur) 15 mg PO DAILY [facility] Isosorbide Mononitrate (Imdur) 30 mg PO DAILY [facility] Last Admin: 10/21/17 08:46 Dose: 30 mg Isosorbide Mononitrate (Imdur) 15 mg PO DAILY [facility] Last Admin: 10/23/17 09:20 Dose: Not Given Ketorolac Tromethamine (Toradol) 60 mg IM ONETIME ONE Stop: 10/30/17 14:08 Last Admin: 10/30/17 14:13 Dose: 60 mg Magnesium Hydroxide (Milk Of Magnesia) 30 ml PO DAILY PRN PRN Reason: Constipation Last Admin: 10/13/17 20:22 Dose: 30 ml Metoprolol Tartrate (Lopressor) 12.5 mg PO BID [facility] Last Admin: 10/23/17 09:20 Dose: Not Given Mometasone Furoate/Formoterol Fumar (Dulera 200-5 Mcg) 2 puff IH BID [facility] Last Admin: 10/18/17 08:59 Dose: 2 puff Nitroglycerin (Nitrostat) Confirm Administered Dose 0.4 mg .ROUTE .STK-MED ONE Stop: 10/30/17 13:52 Last Admin: 10/30/17 13:56 Dose: Not Given - Exam Quality Assessment: Supplemental Oxygen General: Alert, Oriented HEENT: Pupils Equal Neck: Supple Lungs: Clear to Auscultation Cardiovascular: Regular Rate Psy/Mental Status: Alert, Normal Affect, Normal Mood - Problem List & Annotations (1) Status post craniotomy SNOMED Code(s): 743551744, 323991354 Code(s): Z98.890 - OTHER SPECIFIED POSTPROCEDURAL STATES Status: Acute Current Visit: Yes (2) CAD (coronary artery disease) SNOMED Code(s): 54283803 Code(s): I25.10 - ATHSCL HEART DISEASE OF [place] CORONARY ARTERY W/O ANG PCTRS Status: Acute Current Visit: Yes Qualifiers: Coronary Disease-Associated Artery/Lesion type: [place] artery (3) Hemophilia SNOMED Code(s): 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 Code(s): D66 - HEREDITARY FACTOR VIII DEFICIENCY Status: Acute Current Visit: Yes (4) COPD (chronic obstructive pulmonary disease) SNOMED Code(s): 68418149 Code(s): J44.9 - CHRONIC OBSTRUCTIVE PULMONARY DISEASE, UNSPECIFIED Status : Acute Current Visit: Yes (5) Afib SNOMED Code(s): 59763439 Code(s): I48.91 - UNSPECIFIED ATRIAL FIBRILLATION Status: Acute Current Visit: Yes Qualifiers: Atrial fibrillation type: unspecified Qualified Code(s): I48.91 - Unspecified atrial fibrillation (6) HLD (hyperlipidemia) SNOMED Code(s): 65420068 Code(s): E78.5 - HYPERLIPIDEMIA, UNSPECIFIED Status: Acute Current Visit : Yes Qualifiers: Hyperlipidemia type: unspecified Qualified Code(s): E78.5 - Hyperlipidemia , unspecified (7) Pre-diabetes SNOMED Code(s): 746720892 Code(s): R73.03 - PREDIABETES Status: Acute Current Visit: Yes (8) Chest pain SNOMED Code(s): 32098400 Code(s): R07.9 - CHEST PAIN, UNSPECIFIED Status: Acute Current Visit: Yes Qualifiers: Ischemic chest pain type: unspecified angina pectoris type - Problem List Review Problem List Initiated/Reviewed/Updated: Yes - My Orders Last 24 Hours: My Active Orders 10/30/17 13:45 Oxygen Therapy [RC] ASDIRECTED EKG 12 Lead [EK] Routine 10/30/17 13:50 Nitroglycerin [Nitrostat] 0.4 mg SL Q5M PRN 10/30/17 16:38 CXR [Chest 2V] [CR] Routine BASIC METABOLIC PANEL,BMP [CHEM] Stat CBC WITH AUTO DIFF [HEME] Stat D-DIMER QUANTITATIVE [COAG] Routine PRO B-TYPE NATRIUR PEPT,BNPPRO [CHEM] Stat TROPONIN I [CHEM] Stat - Plan Plan:: I would obtain a chest x-ray d-dimer EKG was reviewed which was negative. I will also get a CBC basic profile and BNP a troponin will also be ordered. Will use ketorolac when necessary for the pain. Nitroglycerin gives him a MACK. The family would like him admitted to acute care, but I feel it's more important to obtain the testing and find a reason for his pain before determining disposition
[2017-10-30] MEDS: atorvaSTATin 40 MG Tab PO SCH (17:15)
[2017-10-31] MEDS: Finasteride 5 MG Tab PO SCH (09:17)
[2017-10-31] MEDS: Polyethylene Glycol 3350 Powder 17 GM Packet PO SCH (09:17)
[2017-10-31] MEDS: levETIRAcetam 500 MG Tab PO SCH ×2 (09:17→20:59)
[2017-10-31] MEDS: Clopidogrel 75 MG Tab PO SCH (09:17)
[2017-10-31] MEDS: Aspirin 81 MG Tab.Chew PO SCH (09:17)
[2017-10-31] MEDS: Tamsulosin 0.4 MG Cap.ER PO SCH (09:17)
[2017-10-31] MEDS: atorvaSTATin 40 MG Tab PO SCH (18:52)
[2017-10-31] MEDS: Acetaminophen/Butalbital/Caffeine 325-50-40 MG Tab PO PRN (21:00)
[2017-11-01] MEDS: Polyethylene Glycol 3350 Powder 17 GM Packet PO SCH (08:30)
[2017-11-01] MEDS: Tamsulosin 0.4 MG Cap.ER PO SCH (08:31)
[2017-11-01] MEDS: Finasteride 5 MG Tab PO SCH (08:31)
[2017-11-01] MEDS: levETIRAcetam 500 MG Tab PO SCH (08:31)
[2017-11-01] MEDS: Aspirin 81 MG Tab.Chew PO SCH (08:31)
[2017-11-01] MEDS: Acetaminophen/Butalbital/Caffeine 325-50-40 MG Tab PO PRN (08:31)
[2017-11-01] MEDS: Clopidogrel 75 MG Tab PO SCH (08:32)
[2017-11-01] MEDS ORDERED: Tuberculin, PPD 5 Units/0.1 ML 1 ML MDV IDERM ONE (08:46)
[2017-11-01] MEDS ORDERED: Tuberculin, PPD 5 Units/0.1 ML 1 ML MDV ONE (08:50)
--- NOTE | 2017-11-01 08:50 | PCM.PN ---
- General Info Date of Service: 11/01/17 Admission Dx/Problem (Free Text): Patient without complaints today. Patient states he can stand but still needs some help and assistance. Eyes headaches today. - Patient Data Vitals - Most Recent: Last Vital Signs Temp 97.6 F 11/01/17 06:00 Pulse 75 11/01/17 06:00 Resp 17 11/01/17 06:00 BP 120/80 11/01/17 06:00 Pulse Ox 97 11/01/17 06:00 Weight - Most Recent: 187 lb 10.56 oz Med Orders - Current: Current Medications Acetaminophen/Butalbital/Caffeine (Fioricet 325-50-40 Mg) 2 tab PO Q4H PRN PRN Reason: Headaches Last Admin: 11/01/17 08:31 Dose: 2 tab Amitriptyline HCl (Elavil) 50 mg PO BEDTIME [facility] Last Admin: 10/31/17 20:58 Dose: 50 mg Aspirin (Aspirin) 81 mg PO DAILY [facility] Last Admin: 11/01/17 08:31 Dose: 81 mg Atorvastatin Calcium (Lipitor) 40 mg PO WITHDINNER [facility] Last Admin: 10/31/17 18:52 Dose: 40 mg Bisacodyl (Dulcolax) 10 mg RECTAL DAILY PRN PRN Reason: Constipation Last Admin: 10/25/17 18:15 Dose: 10 mg Clopidogrel Bisulfate (Plavix) 75 mg PO DAILY [facility] Last Admin: 11/01/17 08:32 Dose: 75 mg Finasteride (Proscar) 5 mg PO DAILY [facility] Last Admin: 11/01/17 08:31 Dose: 5 mg Levetiracetam (Keppra) 750 mg PO BID [facility] Last Admin: 11/01/17 08:31 Dose: 750 mg Nitroglycerin (Nitrostat) 0.4 mg SL Q5M PRN PRN Reason: Chest Pain Last Admin: 10/30/17 13:50 Dose: 0.4 mg Polyethylene Glycol (Miralax) 17 gm PO DAILY [facility] Last Admin: 11/01/17 08:30 Dose: 17 gm Tamsulosin HCl (Flomax) 0.4 mg PO DAILY [facility] Last Admin: 11/01/17 08:31 Dose: 0.4 mg Trolamine Salicylate (Aspercreme 10%) 0 gm TOP QID PRN PRN Reason: NECK PAIN Last Admin: 10/29/17 21:16 Dose: 1 applic Tuberculin PPD (Aplisol) 5 unit IDERM ONETIME ONE Stop: 11/01/17 08:47 Discontinued Medications Amlodipine Besylate (Norvasc) 2.5 mg PO DAILY [facility] Last Admin: 10/11/17 09:43 Dose: 2.5 mg Isosorbide Mononitrate (Imdur) 30 mg PO DAILY [facility] Last Admin: 10/17/17 08:13 Dose: 30 mg Isosorbide Mononitrate (Imdur) 15 mg PO DAILY [facility] Isosorbide Mononitrate (Imdur) 30 mg PO DAILY [facility] Last Admin: 10/21/17 08:46 Dose: 30 mg Isosorbide Mononitrate (Imdur) 15 mg PO DAILY [facility] Last Admin: 10/23/17 09:20 Dose: Not Given Ketorolac Tromethamine (Toradol) 60 mg IM ONETIME ONE Stop: 10/30/17 14:08 Last Admin: 10/30/17 14:13 Dose: 60 mg Magnesium Hydroxide (Milk Of Magnesia) 30 ml PO DAILY PRN PRN Reason: Constipation Last Admin: 10/13/17 20:22 Dose: 30 ml Metoprolol Tartrate (Lopressor) 12.5 mg PO BID [facility] Last Admin: 10/23/17 09:20 Dose: Not Given Mometasone Furoate/Formoterol Fumar (Dulera 200-5 Mcg) 2 puff IH BID [facility] Last Admin: 10/18/17 08:59 Dose: 2 puff Nitroglycerin (Nitrostat) Confirm Administered Dose 0.4 mg .ROUTE .STK-MED ONE Stop: 10/30/17 13:52 Last Admin: 10/30/17 13:56 Dose: Not Given - Exam General: Alert, Oriented, Cooperative Lungs: Normal Respiratory Effort Extremities: No Pedal Edema - Problem List & Annotations (1) Status post craniotomy SNOMED Code(s): 705544969, 387792179 Code(s): Z98.890 - OTHER SPECIFIED POSTPROCEDURAL STATES Status: Acute Current Visit: Yes (2) Chest pain SNOMED Code(s): 67210458 Code(s): R07.9 - CHEST PAIN, UNSPECIFIED Status: Acute Current Visit: Yes Qualifiers: Ischemic chest pain type: unspecified angina pectoris type (3) Subdural bleeding SNOMED Code(s): 29464587 Code(s): I62.00 - NONTRAUMATIC SUBDURAL HEMORRHAGE, UNSPECIFIED Status: Acute Current Visit: No - Problem List Review Problem List Initiated/Reviewed/Updated: Yes - My Orders Last 24 Hours: My Active Orders 11/01/17 08:46 Tuberculin, PPD [Aplisol] 5 unit IDERM ONETIME ONE 11/01/17 08:47 Ready for Discharge [RC] PER UNIT ROUTINE - Plan Plan:: discharge to [facility] with PT/OT. Review discharge medications with pharmacy and his discharge summary from [place].
--- NOTE | 2017-11-01 08:53 | PCM.DCSUM1 ---
Discharge Summary - Hospital Course Free Text/Narrative:: She was admitted for rehabilitation. Patient did well. He had some headaches over controlled by fear sent. He had some bouts of chest pain. It was worked up with a EKG, chest x-ray troponins which were negative. Wasn't quite good enough to go home so he be transferred to [facility] for further rehabilitation with PT/OT. He did have follow-up with neurosurgery. He will follow-up later for possible plating of his evacuation site of the subdural hematoma. He did well on his antiseizure medicines. Brief History: Patient admitted for rehabilitation after craniotomy from subdural hematoma. Was admitted to [facility] for evacuation of subdural hematoma after he fell at home and bumped his head. 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 Patient underwent evaluation and hemicraniotomy on 28 August. Postoperatively he was weak has dysphagia and was admitted initially to the rehabilitation unit in [facility] and now being admitted here for swing bed with some physical and occupational needs. - Discharge Data Discharge Date: 11/01/17 Discharge Disposition: DC/Tfer to [facility] Condition: Good - Discharge Diagnosis/Problem(s) (1) Status post craniotomy SNOMED Code(s): 571705308, 765706229 ICD Code: Z98.890 - OTHER SPECIFIED POSTPROCEDURAL STATES Status: Acute Current Visit: Yes (2) Chest pain SNOMED Code(s): 35067637 ICD Code: R07.9 - CHEST PAIN, UNSPECIFIED Status: Acute Current Visit: Yes Qualifiers: Ischemic chest pain type: unspecified angina pectoris type (3) Subdural bleeding SNOMED Code(s): 28853527 ICD Code: I62.00 - NONTRAUMATIC SUBDURAL HEMORRHAGE, UNSPECIFIED Status: Acute Current Visit: No - Patient Summary/Data Consults: Consultations 10/04/17 11:37 OT Evaluation and Treatment [CONS] Routine Please Evaluate and Treat. OT Reason for Consult: Strengthening This query below is only for informational purposes and is not editable. Admission Diagnosis/Problem: Subdural hematoma PT Evaluation and Treatment [CONS] Routine Please Evaluate and Treat. PT Reason for Consult: Strengthening This query below is only for informational purposes and is not editable. Admission Diagnosis/Problem: Subdural hematoma - Patient Instructions Diet: Heart Healthy Diet Activity: As Tolerated Driving: Do Not Drive Showering/Bathing: May Shower Notify Provider of: Increased Pain, Nausea and/or Vomiting Other/Special Instructions: 1. Recheck with Neurosurgery. Appt date unknown. 2. PT/OT - Discharge Plan Prescriptions/Med Rec: Nitroglycerin 0.4 mg SL Q5M PRN #25 tab.subl PRN Reason: Pain Home Medications: Home Meds Clopidogrel Bisulfate [Clopidogrel] 75 mg PO DAILY 08/28/17 [History] atorvaSTATin [Lipitor] 40 mg PO WITHDINNER 08/28/17 [History] Amitriptyline [Elavil] 50 mg PO BEDTIME 10/04/17 [History] Aspirin 81 mg PO DAILY 10/04/17 [History] Finasteride 5 mg PO DAILY 10/04/17 [History] Tamsulosin [Flomax] 0.4 mg PO DAILY 10/04/17 [History] levETIRAcetam [Keppra] 750 mg PO BID 10/04/17 [History] Acetaminophen/Butalbital/Caff [Fioricet 325-50-40 MG] 2 tab PO Q4H PRN tablet 11/01/17 [Rx] Nitroglycerin 0.4 mg SL Q5M PRN #25 tab.subl 11/01/17 [Rx] Polyethylene Glycol 3350 [MiraLAX] 17 gm PO DAILY packet 11/01/17 [Rx] Patient Handouts: Fall Prevention in Hospitals, Adult, Venous Thromboembolism Prevention - Discharge Summary/Plan Comment DC Time >30 min.: No - Patient Data Vitals - Most Recent: Last Vital Signs Temp 97.6 F 11/01/17 06:00 Pulse 75 11/01/17 06:00 Resp 17 11/01/17 06:00 BP 120/80 11/01/17 06:00 Pulse Ox 97 11/01/17 06:00 Weight - Most Recent: 187 lb 10.56 oz Med Orders - Current: Current Medications Acetaminophen/Butalbital/Caffeine (Fioricet 325-50-40 Mg) 2 tab PO Q4H PRN PRN Reason: Headaches Last Admin: 11/01/17 08:31 Dose: 2 tab Amitriptyline HCl (Elavil) 50 mg PO BEDTIME [facility] Last Admin: 10/31/17 20:58 Dose: 50 mg Aspirin (Aspirin) 81 mg PO DAILY [facility] Last Admin: 11/01/17 08:31 Dose: 81 mg Atorvastatin Calcium (Lipitor) 40 mg PO WITHDINNER [facility] Last Admin: 10/31/17 18:52 Dose: 40 mg Bisacodyl (Dulcolax) 10 mg RECTAL DAILY PRN PRN Reason: Constipation Last Admin: 10/25/17 18:15 Dose: 10 mg Clopidogrel Bisulfate (Plavix) 75 mg PO DAILY [facility] Last Admin: 11/01/17 08:32 Dose: 75 mg Finasteride (Proscar) 5 mg PO DAILY [facility] Last Admin: 11/01/17 08:31 Dose: 5 mg Levetiracetam (Keppra) 750 mg PO BID [facility] Last Admin: 11/01/17 08:31 Dose: 750 mg Nitroglycerin (Nitrostat) 0.4 mg SL Q5M PRN PRN Reason: Chest Pain Last Admin: 10/30/17 13:50 Dose: 0.4 mg Polyethylene Glycol (Miralax) 17 gm PO DAILY [facility] Last Admin: 11/01/17 08:30 Dose: 17 gm Tamsulosin HCl (Flomax) 0.4 mg PO DAILY [facility] Last Admin: 11/01/17 08:31 Dose: 0.4 mg Trolamine Salicylate (Aspercreme 10%) 0 gm TOP QID PRN PRN Reason: NECK PAIN Last Admin: 10/29/17 21:16 Dose: 1 applic Discontinued Medications Amlodipine Besylate (Norvasc) 2.5 mg PO DAILY [facility] Last Admin: 10/11/17 09:43 Dose: 2.5 mg Isosorbide Mononitrate (Imdur) 30 mg PO DAILY [facility] Last Admin: 10/17/17 08:13 Dose: 30 mg Isosorbide Mononitrate (Imdur) 15 mg PO DAILY [facility] Isosorbide Mononitrate (Imdur) 30 mg PO DAILY [facility] Last Admin: 10/21/17 08:46 Dose: 30 mg Isosorbide Mononitrate (Imdur) 15 mg PO DAILY [facility] Last Admin: 10/23/17 09:20 Dose: Not Given Ketorolac Tromethamine (Toradol) 60 mg IM ONETIME ONE Stop: 10/30/17 14:08 Last Admin: 10/30/17 14:13 Dose: 60 mg Magnesium Hydroxide (Milk Of Magnesia) 30 ml PO DAILY PRN PRN Reason: Constipation Last Admin: 10/13/17 20:22 Dose: 30 ml Metoprolol Tartrate (Lopressor) 12.5 mg PO BID [facility] Last Admin: 10/23/17 09:20 Dose: Not Given Mometasone Furoate/Formoterol Fumar (Dulera 200-5 Mcg) 2 puff IH BID [facility] Last Admin: 10/18/17 08:59 Dose: 2 puff Nitroglycerin (Nitrostat) Confirm Administered Dose 0.4 mg .ROUTE .STK-MED ONE Stop: 10/30/17 13:52 Last Admin: 10/30/17 13:56 Dose: Not Given Tuberculin PPD (Aplisol) 5 unit IDERM ONETIME ONE Stop: 11/01/17 08:47 *Q Meaningful Use (DIS) - VTE *Q VTE Criteria *Q: - Stroke *Q Stroke Criteria *Q: - AMI *Q AMI Criteria *Q:
== END 2017-11-01 09:30 | DRG 947 ==
LOC: FB.MS 11:08
PROVIDERS: ADMIT Family Medicine; ATTEND Family Medicine
DX: R53.1 Weakness (principal); D66 Hereditary factor VIII deficiency; S06.5X9D Traumatic subdural hemorrhage with loss of consciousness of unspecified duration, subsequent encounter; W19.XXXD Unspecified fall, subsequent encounter; Z98.890 Other specified postprocedural states; R13.10 Dysphagia, unspecified; I25.2 Old myocardial infarction; I25.10 Atherosclerotic heart disease of native coronary artery without angina pectoris; Z95.5 Presence of coronary angioplasty implant and graft; E78.5 Hyperlipidemia, unspecified; J44.9 Chronic obstructive pulmonary disease, unspecified; I48.91 Unspecified atrial fibrillation; Z87.891 Personal history of nicotine dependence; R73.03 Prediabetes; Z79.82 Long term (current) use of aspirin; Z11.1 Encounter for screening for respiratory tuberculosis; R51 Headache; R07.9 Chest pain, unspecified
CPT/HCPCS: 36415; 71046; 80048; 80053; 83880; 84484; 85025; 85379; 86580; 93005; 97110-GO; 97110-GP; 97112-GO; 97112-GP; 97116-GP; 97163-GP; 97165-GO; 97530-GO; 97530-GO-KX; 97530-GP; 97535-GO; 97542-GO; A9270-GY; J1885

== ENCOUNTER 2019-03-11 17:38 | Emergency (ER) | payer MEDICAID, OTHER ==
[2019-03-11] MEDS ORDERED: Azithromycin 500 MG Tab PO ONE (19:15)
--- NOTE | 2019-03-11 19:20 | EDM.PDOC ---
ED HPI GENERAL MEDICAL PROBLEM - General Chief Complaint: ENT Problem Stated Complaint: SORE THROAT Time Seen by Provider: 03/11/19 18:30 Source of Information: Reports: Patient History Limitations: Reports: No Limitations - History of Present Illness INITIAL COMMENTS - FREE TEXT/NARRATIVE: Patient is a very pleasant 63-year-old male who presents today with concern for severe sore throat for the past 4 days. He states that he's also having some pain in the side of his neck, and some very pinpoint places on the left. He has had a few chills and sweats, but no fever at home or here. Not really any cough , though sometimes he thinks because of the nasal congestion. No vomiting or diarrhea. So painful that it sometimes hard to swallow. Has been advised not to take NSAIDs except for on the very acute basis secondary to his other medical conditions. He quit smoking 2 years ago. throat Pain Score (Numeric/FACES): 5 - Related Data Allergies Allergy/AdvReac Type Severity Reaction Status Date / Time No Known Allergies Allergy Verified 10/04/17 13:07 Home Meds: Home Meds Clopidogrel Bisulfate [Clopidogrel] 75 mg PO DAILY 08/28/17 [History] atorvaSTATin [Lipitor] 40 mg PO WITHDINNER 08/28/17 [History] Amitriptyline [Elavil] 50 mg PO BEDTIME 10/04/17 [History] Aspirin 81 mg PO DAILY 10/04/17 [History] Finasteride 5 mg PO DAILY 10/04/17 [History] Tamsulosin [Flomax] 0.4 mg PO DAILY 10/04/17 [History] levETIRAcetam [Keppra] 750 mg PO BID 10/04/17 [History] Acetaminophen/Butalbital/Caff [Fioricet 325-50-40 MG] 2 tab PO Q4H PRN tablet 11/01/17 [Rx] Nitroglycerin 0.4 mg SL Q5M PRN #25 tab.subl 11/01/17 [Rx] Polyethylene Glycol 3350 [MiraLAX] 17 gm PO DAILY packet 11/01/17 [Rx] Azithromycin 500 mg PO QAM 4 Days #4 tablet 03/11/19 [Rx] Past Medical History - Past Health History Medical/Surgical History: Denies Medical/Surgical History Cardiovascular History: Reports: Afib, CAD, High Cholesterol, [place], Stents, Other (See Below) Other Cardiovascular History: acute non-ST elevation [place]; bradycardia Respiratory History: Reports: COPD, SOB Other Respiratory History: Unknown Gastrointestinal History: Reports: Other (See Below) Other Gastrointestinal History: Unknown Genitourinary History: Reports: Other (See Below) Other Genitourinary History: urinary retention Other Musculoskeletal History: Unknown Neurological History: Reports: Head Trauma, Other (See Below) Other Neuro History: left Decompressive hemicraniectomy Psychiatric History: Reports: Other (See Below) Other Psychiatric History: Unknown Other Endocrine/Metabolic History: Prediabetes Hematologic History: Reports: Other (See Below) 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 Immunologic History: Reports: Other (See Below) Other Immunologic History: unknown Oncologic (Cancer) History: Reports: Other (See Below) Other Oncologic History: Unknown Dermatologic History: Reports: Other (See Below) Other Dermatologic History: Unknown - Infectious Disease History Infectious Disease History: Reports: Other (See Below) Other Infectious Disease History: unknown - Past Surgical History Other Cardiovascular Surgeries/Procedures: Pt had stents put in over Thanksgiving and a follow up appt was scheduled for today. Other Respiratory Surgeries/Procedures: Pt has history of smoking and COPD which led to stent placement. Social & Family History - Family History Family Medical History: Noncontributory - Tobacco Use Smoking Status *Q: Former Smoker Tobacco Use Within Last Twelve Months: No - Caffeine Use Caffeine Use: Reports: Soda Other Caffeine Use: 1 can of soda Caffeine Use Comment: Unknown - Recreational Drug Use Recreational Drug Use: No ED ROS GENERAL - Review of Systems Review Of Systems: ROS reveals no pertinent complaints other than HPI. ED EXAM, GENERAL - Physical Exam Exam: See Below Free Text/Narrative:: General: Alert, pleasant not acutely distressed and nontoxic appearing. Neck is freely movable and he has prominent cervical lymphadenopathy on the left side only. There is no tenderness outside of the lymph nodes in a few shotty lymph nodes on the right but not nearly as painful. Tympanic membranes difficult to visualize secondary to significant cerumen, however no bulges seen. Throat is significantly erythematous and there are some patchy exudates, uvula is midline , tonsil area does not appear to be enlarged. Mucous members are moist. Lungs are clear throughout with no wheezes or crackles and generally decreased air movement and prolonged expiratory phase. Heart is regular rate and rhythm. Peripheral pulses +2 and there is no lower extremity edema Course - Vital Signs Text/Narrative:: Sore throat over the past 4 days, explained that most the time this is related to pharyngitis however based on the center criteria he does meet qualifications for treatment for strep throat. He did not have any evidence of neck pain or swelling outside of some very obvious and tender lymph nodes. Discussed signs or symptoms of deep space neck infection and peritonsillar abscess and when he needs to return to the ER. A dose of azithromycin was given here and the rest was sent in for him to complete a course at home. Also discussed over-the- counter analgesics and other treatments for sore throat. Last Recorded V/S: Last Vital Signs Temp 36.9 C 03/11/19 19:23 Pulse 81 03/11/19 19:23 Resp 18 03/11/19 19:23 BP 120/90 03/11/19 19:23 Pulse Ox 97 03/11/19 19:23 - Orders/Labs/Meds Meds: Medications Discontinued Medications Generic Name Dose Route Start Last Admin Trade Name Clarisa PRN Reason Stop Dose Admin Azithromycin 500 mg 03/11/19 19:15 03/11/19 19:22 Zithromax PO 03/11/19 19:16 500 mg ONETIME ONE Administration Departure - Departure Time of Disposition: 19:13 Disposition: Home, Self-Care 01 Condition: Good Clinical Impression: Pharyngitis - Discharge Information *PRESCRIPTION DRUG MONITORING PROGRAM REVIEWED*: Not Applicable *COPY OF PRESCRIPTION DRUG MONITORING REPORT IN PATIENT KARYNA: Not Applicable Prescriptions: Azithromycin 500 mg PO QAM 4 Days #4 tablet Instructions: Strep Throat Referrals: Dennis Soni MD [Primary Care Provider] - Forms: ED Department Discharge Additional Instructions: if develop worsening difficulty swallowing, difficulty breathing, fever greater than 100.5 Fahrenheit, more significant change in voice, return to emergency room for recheck. Also return if you develop more pain in her neck and are not able to move it. you were given 1 dose of azithromycin in the emergency room tonight. A prescription was sent in for the rest. Take one pill a day until they are gone for relief can try: throat spray (available at pharmacy) throat lozenges very minimal ibuprofen or aleve gargle with salt water honey - daija if come from [employer]
== END 2019-03-11 19:28 | disposition home or self-care (01) ==
LOC: FB.ED 17:38
DX: J02.9 Acute pharyngitis, unspecified (principal); I48.91 Unspecified atrial fibrillation; I25.10 Atherosclerotic heart disease of native coronary artery without angina pectoris; E78.00 Pure hypercholesterolemia, unspecified; I25.2 Old myocardial infarction; Z95.5 Presence of coronary angioplasty implant and graft; J44.9 Chronic obstructive pulmonary disease, unspecified; Z79.899 Other long term (current) drug therapy
CPT/HCPCS: 99282; A9270

== ENCOUNTER 2020-03-13 17:22 | Emergency (ER) | payer MEDICAID, MEDICARE ==
[2020-03-13] MEDS ORDERED: Acetaminophen/HYDROcodone 325-5 MG Tab PO ONE (17:23)
--- NOTE | 2020-03-13 17:36 | EDM.PDOC ---
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 has never had colonoscopy denies prior abd surgery last cardiac stent 6m ago, states he was here on swing bed for 1.5m and then went to [place] nearer his home for another 1m of rehab works on his own was working on his pontoon a few days ago, and cut his RUE on a piece of metal, which bleed is on ASA and Plavix has had N, no V, holds hand over RLQ when he walks gingerly down the dial no f/c/d, no sob, no cough, no cp, no MACK PMH NEURO: subdural bleed, s/p craniotomy CV: CAD, stents x 3, afib, hyperlip ENDOCR: pre-DM HEME: hemophilia (per chart, 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, says his parents stated this when he was a child as family members "bleed like a stuck hog") PUL: COPD RECENT MEDS GI: Miralax 17 gm/d NEURO: levetiracetam 750 bid, amitriptyline 50/hs PAIN: Fioricet 325-50-40 prn CV: atorvas 40/d, NTG o.4 prn, clopidog 75/d, asa 81/d : tamsulosin 0.4/d, finasteride 5/d LABS IN [facility] 2y ago CBC neg with hgb 14.5, d-dimer < 100 2y ago trop <0.017, BNP 166 (normal <125) 3y ago INR 1.07 RLQ abdomen Pain Score (Numeric/FACES): 8 - Related Data Allergies Allergy/AdvReac Type Severity Reaction Status Date / Time No Known Allergies Allergy Verified 10/04/17 13:07 Home Meds: Home Meds Clopidogrel Bisulfate [Clopidogrel] 75 mg PO DAILY 08/28/17 [History] atorvaSTATin [Lipitor] 40 mg PO WITHDINNER 08/28/17 [History] Amitriptyline [Elavil] 50 mg PO BEDTIME 10/04/17 [History] Aspirin 81 mg PO DAILY 10/04/17 [History] Finasteride 5 mg PO DAILY 10/04/17 [History] Tamsulosin [Flomax] 0.4 mg PO DAILY 10/04/17 [History] levETIRAcetam [Keppra] 750 mg PO BID 10/04/17 [History] Acetaminophen/Butalbital/Caff [Fioricet 325-50-40 MG] 2 tab PO Q4H PRN tablet 11/01/17 [Rx] Nitroglycerin 0.4 mg SL Q5M PRN #25 tab.subl 11/01/17 [Rx] polyethylene glycoL 3350 [MiraLAX] 17 gm PO DAILY packet 11/01/17 [Rx] Azithromycin 500 mg PO QAM 4 Days #4 tablet 03/11/19 [Rx] Acetaminophen/HYDROcodone [Jadwin 325-5 MG] 1 tab PO Q6H PRN #6 tab 03/13/20 [Rx] Ciprofloxacin HCl [Cipro] 500 mg PO BID #28 tablet 03/13/20 [Rx] Ketorolac [Toradol] 10 mg PO QID #20 tab 03/13/20 [Rx] Past Medical History - Past Health History Medical/Surgical History: Denies Medical/Surgical History Cardiovascular History: Reports: Afib, CAD, High Cholesterol, DC, Stents, Other (See Below) Other Cardiovascular History: acute non-ST elevation DC; bradycardia Respiratory History: Reports: COPD, SOB Other Respiratory History: Unknown Gastrointestinal History: Reports: Other (See Below) Other Gastrointestinal History: Unknown Genitourinary History: Reports: Other (See Below) Other Genitourinary History: urinary retention Other Musculoskeletal History: Unknown Neurological History: Reports: Head Trauma, Other (See Below) Other Neuro History: left Decompressive hemicraniectomy Psychiatric History: Reports: Other (See Below) Other Psychiatric History: Unknown Other Endocrine/Metabolic History: Prediabetes Hematologic History: Reports: Other (See Below) 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 Immunologic History: Reports: Other (See Below) Other Immunologic History: unknown Oncologic (Cancer) History: Reports: Other (See Below) Other Oncologic History: Unknown Dermatologic History: Reports: Other (See Below) Other Dermatologic History: Unknown - Infectious Disease History Infectious Disease History: Reports: Other (See Below) Other Infectious Disease History: unknown - Past Surgical History Other Cardiovascular Surgeries/Procedures: Pt had stents put in over Thanksgiving and a follow up appt was scheduled for today. Other Respiratory Surgeries/Procedures: Pt has history of smoking and COPD which led to stent placement. Social & Family History - Family History Family Medical History: Noncontributory - Tobacco Use Smoking Status *Q: Never Smoker - Caffeine Use Caffeine Use: Reports: Soda Other Caffeine Use: 1 can of soda Caffeine Use Comment: mountain dew - Recreational Drug Use Recreational Drug Use: No ED ROS GENERAL - Review of Systems Review Of Systems: See Below Constitutional: Reports: No Symptoms. Denies: Fever, Chills, Malaise, Weakness, Fatigue, Diaphoresis, Decreased Appetite HEENT: Reports: No Symptoms Respiratory: Reports: No Symptoms Cardiovascular: Reports: No Symptoms Endocrine: Reports: No Symptoms GI/Abdominal: Reports: Abdominal Pain, Constipation, Nausea. Denies: Vomiting : Reports: No Symptoms Musculoskeletal: Reports: No Symptoms Skin: Reports: No Symptoms Neurological: Reports: No Symptoms Psychiatric: Reports: No Symptoms Hematologic/Lymphatic: Reports: No Symptoms Immunologic: Reports: No Symptoms ED EXAM, GENERAL - Physical Exam Exam: See Below General Appearance: Alert, WD/WN, Mild Distress, Other (alert, pleasant) Eye Exam: Bilateral Eye: EOMI, PERRL Ears: Hearing Grossly Normal Nose: Normal Inspection, Normal Mucosa, No Blood Throat/Mouth: Normal Inspection, Normal Voice, No Airway Compromise Head: Atraumatic, Normocephalic Neck: Normal Inspection, Supple, Non-Tender, Full Range of Motion. No: Lymphadenopathy (R), Lymphadenopathy (L) Respiratory/Chest: No Respiratory Distress, Lungs Clear, Normal Breath Sounds, No Accessory Muscle Use, Chest Non-Tender Cardiovascular: Regular Rate, Rhythm, No Edema, No Gallop, No JVD, No Murmur, No Rub GI/Abdominal: Other (BS present altho dec'd, tender only at RLQ to compression over 2 cm, then winces, also R CVAT, no pelvic pain posteriorly, no guarding, probably mild distention, did let his belt out one notch) Back Exam: Normal Inspection, Full Range of Motion, NT Extremities: Normal Inspection, Normal Range of Motion, Non-Tender, No Pedal Edema Neurological: Alert, Oriented, CN II-XII Intact, Normal Cognition, No Motor/Sensory Deficits Psychiatric: Normal Affect, Normal Mood Skin Exam: Warm, Dry, Intact, Normal Color, No Rash Lymphatic: No Adenopathy Course - Vital Signs Last Recorded V/S: Last Vital Signs Temp 36.9 C 03/13/20 17:22 Pulse 77 03/13/20 17:22 Resp 16 03/13/20 17:22 BP 151/97 H 03/13/20 17:22 Pulse Ox 97 03/13/20 17:22 - Orders/Labs/Meds Orders: Active Orders 24 hr Category Date Time Status EKG Documentation Completion [RC] ASDIRECTED Care 03/13/20 17:47 Active Abdomen Pelvis w Cont [CT] Stat Exams 03/13/20 17:49 Taken CULTURE BLOOD [BC] Urgent Lab 03/13/20 18:05 Received CULTURE BLOOD [BC] Urgent Lab 03/13/20 18:10 Received UA W/MICROSCOPIC [URIN] Stat Lab 03/13/20 17:46 Ordered Sodium Chloride 0.9% [Normal Saline] 1,000 ml Med 03/13/20 17:45 Active IV ASDIRECTED Sodium Chloride 0.9% [Normal Saline] 1,000 ml Med 03/13/20 18:00 Active IV ASDIRECTED Sodium Chloride 0.9% [Normal Saline] 1,000 ml Med 03/13/20 20:30 Active IV ASDIRECTED Blood Culture x2 Reflex Set [OM.PC] Urgent Oth 03/13/20 17:46 Ordered EKG 12 Lead [EK] Routine Ther 03/13/20 17:46 Ordered Medication Orders Sodium Chloride (Normal Saline) 1,000 mls @ 999 mls/hr IV ASDIRECTED MELINDA Last Admin: 03/13/20 20:36 Dose: 999 mls/hr Documented by: Infusion: 03/13/20 19:05 Dose: 999 mls/hr Documented by: Admin: 03/13/20 18:04 Dose: 999 mls/hr Documented by: BRIAN Sodium Chloride (Normal Saline) 1,000 mls @ 999 mls/hr IV ASDIRECTED MELINDA Last Admin: 03/13/20 19:18 Dose: 999 mls/hr Documented by: BRIAN Sodium Chloride (Normal Saline) 1,000 mls @ 999 mls/hr IV ASDIRECTED [facility] Labs: Laboratory Tests 03/13/20 03/13/20 03/13/20 Range/Units 18:10 18:10 18:10 WBC 8.5 (4.5-12.0) X10-3/uL RBC 4.81 (4.30-5.75) x10(6)uL Hgb 14.3 (13.5-17.8) g/dL Hct 42.9 (30.0-51.3) % MCV 89.1 (80-96) fL MCH 29.6 (27.7-33.6) pg MCHC 33.2 (32.2-35.4) g/dL RDW 13.1 (11.5-15.5) % Plt Count 174 (125-369) X10(3)uL MPV 8.5 (7.4-10.4) fL Neut % (Auto) 71.1 (46-82) % Lymph % (Auto) 19.4 (13-37) % Ogle % (Auto) 8.5 (4-12) % Eos % (Auto) 1 (1.0-5.0) % Baso % (Auto) 0 (0-2) % Neut # (Auto) 6.0 (1.6-8.3) # Lymph # (Auto) 1.7 (0.6-5.0) # Ogle # (Auto) 0.7 (0.0-1.3) # Eos # (Auto) 0.1 (0.0-0.8) # Baso # (Auto) 0.0 (0.0-0.2) # PT (9.0-11.1) sec INR (1.00-1.24) APTT (24.4-33.2) SECONDS Sodium 140 (135-145) mmol/L Potassium 3.8 (3.5-5.3) mmol/L Chloride 104 (100-110) mmol/L Carbon Dioxide 23 (21-32) mmol/L BUN 23 H (7-18) mg/dL Creatinine 1.2 (0.70-1.30) mg/dL Est Cr Clr Drug Dosing 69.36 mL/min Estimated GFR (MDRD) > 60 (>60) BUN/Creatinine Ratio 19.2 (9-20) Glucose 129 H (80-116) mg/dL Lactic Acid (0.4-2.0) mmol/L Calcium 9.3 (8.6-10.2) mg/dL Total Bilirubin 0.8 (0.1-1.3) mg/dL AST 27 H D (5-25) IU/L ALT 37 H D (12-36) U/L Alkaline Phosphatase 92 (56-112) IU/L Troponin I 5.4 (4.0-60.3) pg/mL C-Reactive Protein 0.3 L (0.5-0.9) mg/dL Total Protein 8.1 H (6.0-8.0) g/dL Albumin 4.5 (3.2-4.6) g/dL Globulin 3.6 g/dL Albumin/Globulin Ratio 1.3 Lipase 87 (73-393) U/L 03/13/20 03/13/20 Range/Units 18:10 18:10 WBC (4.5-12.0) X10-3/uL RBC (4.30-5.75) x10(6)uL Hgb (13.5-17.8) g/dL Hct (30.0-51.3) % MCV (80-96) fL MCH (27.7-33.6) pg MCHC (32.2-35.4) g/dL RDW (11.5-15.5) % Plt Count (125-369) X10(3)uL MPV (7.4-10.4) fL Neut % (Auto) (46-82) % Lymph % (Auto) (13-37) % Ogle % (Auto) (4-12) % Eos % (Auto) (1.0-5.0) % Baso % (Auto) (0-2) % Neut # (Auto) (1.6-8.3) # Lymph # (Auto) (0.6-5.0) # Ogle # (Auto) (0.0-1.3) # Eos # (Auto) (0.0-0.8) # Baso # (Auto) (0.0-0.2) # PT 11.0 (9.0-11.1) sec INR 1.02 (1.00-1.24) APTT 26.7 (24.4-33.2) SECONDS Sodium (135-145) mmol/L Potassium (3.5-5.3) mmol/L Chloride (100-110) mmol/L Carbon Dioxide (21-32) mmol/L BUN (7-18) mg/dL Creatinine (0.70-1.30) mg/dL Est Cr Clr Drug Dosing mL/min Estimated GFR (MDRD) (>60) BUN/Creatinine Ratio (9-20) Glucose (80-116) mg/dL Lactic Acid 1.0 (0.4-2.0) mmol/L Calcium (8.6-10.2) mg/dL Total Bilirubin (0.1-1.3) mg/dL AST (5-25) IU/L ALT (12-36) U/L Alkaline Phosphatase (56-112) IU/L Troponin I (4.0-60.3) pg/mL C-Reactive Protein (0.5-0.9) mg/dL Total Protein (6.0-8.0) g/dL Albumin (3.2-4.6) g/dL Globulin g/dL Albumin/Globulin Ratio Lipase (73-393) U/L Meds: Medications Generic Name Dose Route Start Last Admin Trade Name Freq PRN Reason Stop Dose Admin Sodium Chloride 1,000 mls @ 999 mls/hr 03/13/20 17:45 03/13/20 20:36 Normal Saline IV 999 mls/hr ASDIRECTED MELINDA Administration Sodium Chloride 1,000 mls @ 999 mls/hr 03/13/20 18:00 03/13/20 19:18 Normal Saline IV 999 mls/hr ASDIRECTED MELINDA Administration Sodium Chloride 1,000 mls @ 999 mls/hr 03/13/20 20:30 Normal Saline IV ASDIRECTED MELINDA Discontinued Medications Generic Name Dose Route Start Last Admin Trade Name Freq PRN Reason Stop Dose Admin Hydromorphone HCl 1 mg 03/13/20 17:45 03/13/20 18:03 Dilaudid IVPUSH 03/13/20 17:46 1 mg ONETIME ONE Administration Iopamidol 100 ml 03/13/20 18:44 03/13/20 18:52 Isovue-370 (76%) IV 03/13/20 18:45 100 ml . DIRECTED ONE Administration Morphine Sulfate 4 mg 03/13/20 22:11 Morphine IVPUSH 03/13/20 22:12 ONETIME ONE Ondansetron HCl 4 mg 03/13/20 17:45 03/13/20 18:03 Zofran IVPUSH 03/13/20 17:46 4 mg ONETIME ONE Administration - Re-Assessments/Exams Free Text/Narrative Re-Assessment/Exam: 03/13/20 18:55 CBC neg with wbc 8.5, hgb 14.3, plt 174. all essentially no change from 2y ago CMP with BUN/creat 23/1.2 and inc'd c/w 2y ago when he was 14/0.7 lactic acid 1.0 glucose 129 AST/ALT 27/37 now, was 21/30 from 2y ago, c/w hemoconcentration CRP 0.3 TP 8.1 now, was 7.0 from 2y ago, also c/w hemoconcentration lipase 87 03/13/20 22:38 u/a shows evidence of UTI, suspect possible prostate involvement as pt had urinary retention of over 700 ml urine which he has not had previously CT abd/pelvis without contrast shows a 2-3 mm stone at R UVJ all of these issues discussed at length with pt pt reports that he sees urologist at [facility] Departure - Departure Time of Disposition: 22:21 Disposition: Home, Self-Care 01 Condition: Good Clinical Impression: Ureteral calculus, right, Renal colic on right side, Acute urinary retention, Acute renal insufficiency, Elevated BUN, Urinary tract infection - Discharge Information *PRESCRIPTION DRUG MONITORING PROGRAM REVIEWED*: Not Applicable *COPY OF PRESCRIPTION DRUG MONITORING REPORT IN PATIENT KARYNA: Not Applicable Prescriptions: Ciprofloxacin HCl [Cipro] 500 mg PO BID #28 tablet Acetaminophen/HYDROcodone [Jadwin 325-5 MG] 1 tab PO Q6H PRN #6 tab PRN Reason: Pain Ketorolac [Toradol] 10 mg PO QID #20 tab Instructions: Kidney Stones, Renal Colic, Acute Urinary Retention, Male, Urinary Tract Infection, Adult Referrals: Dennis Soni MD [Primary Care Provider] - Additional Instructions: For pain and spasm, take ketorolac 10 mg 1 tab 4 times a day until the stone passes. For pain and spasm, continue the tamsulosin 0.4 mg 1 tab daily. For breakthrough pain, take hydrocodone/acetaminophen 5/325 mg 1 tab every 6 hours as needed. No alcohol. For infection, take ciprofloxacin 500 mg 1 tab 2 times a day for 14 days. See your PCP in the next week. See your urologist in the next 2 weeks. Return to ED if you are feeling worse, have pain that is not controlled at home, are unable to empty your bladder, develop a fever or other new symptoms. Increase your fluids. Sepsis Event Note (ED) - Evaluation Sepsis Screening Result: No Definite Risk - Focused Exam Vital Signs: Vital Signs Temp Pulse Resp BP Pulse Ox 03/13/20 17:22 36.9 C 77 16 151/97 H 97 - My Orders Last 24 Hours: My Active Orders 03/13/20 17:45 Sodium Chloride 0.9% [Normal Saline] 1,000 ml IV ASDIRECTED 03/13/20 17:46 UA W/MICROSCOPIC [URIN] Stat Blood Culture x2 Reflex Set [OM.PC] Urgent EKG 12 Lead [EK] Routine 03/13/20 17:47 EKG Documentation Completion [RC] ASDIRECTED 03/13/20 17:49 Abdomen Pelvis w Cont [CT] Stat 03/13/20 18:00 Sodium Chloride 0.9% [Normal Saline] 1,000 ml IV ASDIRECTED 03/13/20 18:05 CULTURE BLOOD [BC] Urgent 03/13/20 18:10 CULTURE BLOOD [BC] Urgent 03/13/20 20:30 Sodium Chloride 0.9% [Normal Saline] 1,000 ml IV ASDIRECTED - Assessment/Plan Last 24 Hours: My Active Orders 03/13/20 17:45 Sodium Chloride 0.9% [Normal Saline] 1,000 ml IV ASDIRECTED 03/13/20 17:46 UA W/MICROSCOPIC [URIN] Stat Blood Culture x2 Reflex Set [OM.PC] Urgent EKG 12 Lead [EK] Routine 03/13/20 17:47 EKG Documentation Completion [RC] ASDIRECTED 03/13/20 17:49 Abdomen Pelvis w Cont [CT] Stat 03/13/20 18:00 Sodium Chloride 0.9% [Normal Saline] 1,000 ml IV ASDIRECTED 03/13/20 18:05 CULTURE BLOOD [BC] Urgent 03/13/20 18:10 CULTURE BLOOD [BC] Urgent 03/13/20 20:30 Sodium Chloride 0.9% [Normal Saline] 1,000 ml IV ASDIRECTED
[2020-03-13] MEDS ORDERED: HYDROmorphone 2 MG/ML SDV IVPUSH ONE (17:45)
[2020-03-13] MEDS ORDERED: Ondansetron 4 MG/2 ML SDV IVPUSH ONE (17:45)
[2020-03-13] MEDS ORDERED: Sodium Chloride 0.9% 1,000 ML IV SCH ×2 (18:00→20:30)
[2020-03-13] MEDS: Sodium Chloride 0.9% 1,000 ML IV SCH ×2 (18:04→20:36)
[2020-03-13] MEDS ORDERED: Iopamidol 755 Mg/ML 100 ML Bottle IV ONE (18:44)
[2020-03-13] MEDS ORDERED: Morphine 4 MG/ML VIAL IVPUSH ONE (22:11)
[2020-03-13] MEDS ORDERED: Ciprofloxacin 500 MG Tab PO ONE (22:28)
== END 2020-03-13 22:45 | disposition home or self-care (01) ==
LOC: FB.ED 17:22
DX: N39.0 Urinary tract infection, site not specified (principal); N13.2 Hydronephrosis with renal and ureteral calculous obstruction; R33.9 Retention of urine, unspecified; N28.9 Disorder of kidney and ureter, unspecified; R79.89 Other specified abnormal findings of blood chemistry; E78.00 Pure hypercholesterolemia, unspecified; I25.2 Old myocardial infarction; I48.91 Unspecified atrial fibrillation; J44.9 Chronic obstructive pulmonary disease, unspecified; Z95.5 Presence of coronary angioplasty implant and graft; Z79.82 Long term (current) use of aspirin; Z79.899 Other long term (current) drug therapy
CPT/HCPCS: 36415; 74177; 80053; 81001; 83605; 83690; 84484; 85025; 85610; 85730; 86140; 87040; 87086; 87088; 93005; 96374; 96375; 99284; A9270; J1170; J2270; J2405; J7030; Q9967; 87186

== ENCOUNTER 2021-06-24 16:40 | Emergency (ER) | payer MEDICARE ==
[2021-06-24] MEDS ORDERED: Sulfamethoxazole/Trimethoprim 800-160 MG Tab PO ONE (16:41)
--- NOTE | 2021-06-24 17:46 | EDM.PDOC ---
ED HPI GENERAL MEDICAL PROBLEM - General Chief Complaint: Fever Stated Complaint: NOT FEELING WELL Time Seen by Provider: 06/24/21 17:00 Source of Information: Reports: Patient History Limitations: Reports: No Limitations - History of Present Illness INITIAL COMMENTS - FREE TEXT/NARRATIVE: 65-year-old gentleman with past medical history significant for middle cerebral artery aneurysm, coronary artery disease with coronary artery stenting came to the emergency department today because this morning he woke up feeling poorly. He states that he is weak, fatigued, he has fever with chills, his feet are very cold, he has had a mild cough and reduced appetite. He states that he has not had chest pain or any increase in shortness of breath over his baseline. Note that he uses inhalers at home as directed. He has not had any change in bowel or bladder habits including nausea, vomiting, diarrhea. He also complains of bilateral lower leg pain and weakness. He took his daily medications this morning with orange juice but has not had anything else to eat today. - Related Data Allergies Allergy/AdvReac Type Severity Reaction Status Date / Time No Known Allergies Allergy Verified 10/04/17 13:07 Home Meds: Home Meds Clopidogrel Bisulfate [Clopidogrel] 75 mg PO DAILY 08/28/17 [History] atorvaSTATin [Lipitor] 40 mg PO WITHDINNER 08/28/17 [History] Amitriptyline [Elavil] 50 mg PO BEDTIME 10/04/17 [History] Aspirin 81 mg PO DAILY 10/04/17 [History] Tamsulosin [Flomax] 0.4 mg PO DAILY 10/04/17 [History] levETIRAcetam [Keppra] 750 mg PO BID 10/04/17 [History] Nitroglycerin 0.4 mg SL Q5M PRN #25 tab.subl 11/01/17 [Rx] polyethylene glycoL 3350 [MiraLAX] 17 gm PO DAILY packet 11/01/17 [Rx] nitrofurantoin macrocrystaL [Nitrofurantoin] 100 mg PO BID #14 capsule 03/16/20 [Rx] Past Medical History - Past Health History Medical/Surgical History: Denies Medical/Surgical History Cardiovascular History: Reports: Afib, CAD, High Cholesterol, LA, Stents, Other (See Below) Other Cardiovascular History: acute non-ST elevation LA; bradycardia Respiratory History: Reports: COPD, SOB Other Respiratory History: Unknown Gastrointestinal History: Reports: Other (See Below) Other Gastrointestinal History: Unknown Genitourinary History: Reports: Other (See Below) Other Genitourinary History: urinary retention Other Musculoskeletal History: Unknown Neurological History: Reports: Cerebral Aneurysms, Head Trauma, Other (See Below) Other Neuro History: left Decompressive hemicraniectomy Psychiatric History: Reports: Other (See Below) Other Psychiatric History: Unknown Other Endocrine/Metabolic History: Prediabetes Hematologic History: Reports: Other (See Below) 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 Immunologic History: Reports: Other (See Below) Other Immunologic History: unknown Oncologic (Cancer) History: Reports: Other (See Below) Other Oncologic History: Unknown Dermatologic History: Reports: Other (See Below) Other Dermatologic History: Unknown - Infectious Disease History Infectious Disease History: Reports: Other (See Below) Other Infectious Disease History: unknown - Past Surgical History Other Cardiovascular Surgeries/Procedures: Pt had stents put in over Thanksgiving and a follow up appt was scheduled for today. Other Respiratory Surgeries/Procedures: Pt has history of smoking and COPD which led to stent placement. Social & Family History - Family History Family Medical History: No Pertinent Family History - Tobacco Use Tobacco Use Status *Q: Former Tobacco User Used Tobacco, but Quit: Yes Month/Year Tobacco Last Used: 05/2016 - Caffeine Use Caffeine Use: Reports: Soda Other Caffeine Use: 1 can of soda Caffeine Use Comment: loi crocker ED ROS GENERAL - Review of Systems Review Of Systems: See Below Constitutional: Reports: Fever, Chills, Weakness, Fatigue HEENT: Reports: No Symptoms Respiratory: Reports: No Symptoms Cardiovascular: Reports: No Symptoms Endocrine: Reports: Fatigue GI/Abdominal: Reports: No Symptoms : Reports: No Symptoms Musculoskeletal: Reports: Leg Pain, Muscle Pain Neurological: Reports: No Symptoms Psychiatric: Reports: No Symptoms Hematologic/Lymphatic: Reports: No Symptoms Immunologic: Reports: No Symptoms ED EXAM, GENERAL - Physical Exam Exam: See Below Free Text/Narrative:: Patient appears fatigued and tired but he was able to get up out of bed and stand throughout the entire interview and exam without difficulty or shortness of breath Exam Limited By: No Limitations General Appearance: Alert, WD/WN, No Apparent Distress, Other (Patient appears fatigued) Eye Exam: Bilateral Eye: EOMI Head: Atraumatic, Normocephalic Neck: Normal Inspection Respiratory/Chest: No Respiratory Distress, Other (Mildly reduced lung sounds with very mild scattered crackles at the bilateral bases) Cardiovascular: Regular Rate, Rhythm, No Murmur Peripheral Pulses: 2+: Radial (L), Radial (R) GI/Abdominal: Normal Bowel Sounds, Soft, Non-Tender Back Exam: Normal Inspection. No: CVA Tenderness (R), CVA Tenderness (L) Extremities: Normal Inspection, No Pedal Edema Neurological: Alert, Oriented, CN II-XII Intact, Normal Cognition Psychiatric: Normal Affect Skin Exam: Warm, Dry Course - Vital Signs Text/Narrative:: Orthostatic pressures show orthostatic hypotension. Urinalysis shows likely urinary tract infection and CBC shows leukocytosis. View of chest x-ray compared with chest x-ray completed in 2018 shows no significant changes, no obvious consolidations or effusions. Patient given 1 mg of ceftriaxone IM and will be sent home with Bactrim. Last Recorded V/S: Last Vital Signs Temp 36.8 C 06/24/21 17:10 Pulse 96 06/24/21 17:10 Resp 18 06/24/21 17:10 BP 112/52 L 06/24/21 17:10 Pulse Ox 94 L 06/24/21 17:10 Orthostatic Blood Pressure [ 87/54 Standing] Orthostatic Blood Pressure [ 112/72 Sitting] Orthostatic Blood Pressure [ 129/76 Supine] - Orders/Labs/Meds Orders: Active Orders 24 hr Category Date Time Status Orthostatic Vital Signs [RC] ASDIRECTED Care 06/24/21 17:19 Active CXR [Chest 2V] [CR] Stat Exams 06/24/21 18:28 Taken Isolation [COMM] Routine Oth 06/24/21 16:53 Ordered Labs: Laboratory Tests 06/24/21 06/24/21 06/24/21 Range/Units 16:51 17:40 17:40 WBC 16.6 H (3.2-10.1) x10-3/uL RBC 4.88 (3.90-5.90) x10(6)uL Hgb 14.1 (12.9-17.7) g/dL Hct 42.7 (38.3-50.1) % MCV 87.5 (80.8-98.7) fL MCH 28.9 (27.0-33.3) pg MCHC 33.0 (28.7-35.3) g/dL RDW 13.0 (12.4-15.0) % Plt Count 166 (117-477) x10(3)uL MPV 8.1 (6.7-11.0) fL Neut % (Auto) 83.6 H (40.3-71.8) % Lymph % (Auto) 7.2 L (15.8-45.3) % Perry % (Auto) 8.9 (5.5-15.2) % Eos % (Auto) 0.1 (0.1-6.8) % Baso % (Auto) 0.2 L (0.3-3.8) % Neut # (Auto) 13.9 H (1.7-6.9) x10-3/uL Lymph # (Auto) 1.2 (0.5-4.5) x10-3/uL Perry # (Auto) 1.5 H (0.0-1.2) x10-3/uL Eos # (Auto) 0.0 (0.0-0.6) x10-3/uL Baso # (Auto) 0.0 (0.0-0.3) x10-3/uL Sodium 138 (135-145) mmol/L Potassium 4.0 (3.5-5.3) mmol/L Chloride 103 (100-110) mmol/L Carbon Dioxide 24 (21-32) mmol/L BUN 13 D (7-18) mg/dL Creatinine 1.1 (0.70-1.30) mg/dL Est Cr Clr Drug Dosing 68.21 mL/min Estimated GFR (MDRD) > 60 (>60) BUN/Creatinine Ratio 11.8 (9-20) Glucose 123 H (80-116) mg/dL Calcium 8.7 (8.6-10.2) mg/dL Total Bilirubin 1.2 (0.1-1.3) mg/dL AST 21 D (5-25) IU/L ALT 32 D (12-36) U/L Alkaline Phosphatase 85 (56-112) IU/L Total Protein 7.1 (6.0-8.0) g/dL Albumin 3.7 (3.2-4.6) g/dL Globulin 3.4 g/dL Albumin/Globulin Ratio 1.1 Urine Color (YELLOW) Urine Appearance (CLEAR) Urine pH (5.0-6.5) Ur Specific Dendron (1.010-1.025) Urine Protein (NEGATIVE) mg/dL Urine Glucose (UA) (NORMAL) mg/dL Urine Ketones (NEGATIVE) mg/dL Urine Occult Blood (NEGATIVE) Urine Nitrite (NEGATIVE) Urine Bilirubin (NEGATIVE) Urine Urobilinogen (NEGATIVE) mg/dL Ur Leukocyte Esterase (NEGATIVE) Urine RBC (0-5) Urine WBC (0-5) Ur Squamous Epith Cells (NS,R,O) Urine Bacteria (NS) SARS-CoV-2 RNA (OCHOA) Negative (NEGATIVE) 06/24/21 Range/Units 18:36 WBC (3.2-10.1) x10-3/uL RBC (3.90-5.90) x10(6)uL Hgb (12.9-17.7) g/dL Hct (38.3-50.1) % MCV (80.8-98.7) fL MCH (27.0-33.3) pg MCHC (28.7-35.3) g/dL RDW (12.4-15.0) % Plt Count (117-477) x10(3)uL MPV (6.7-11.0) fL Neut % (Auto) (40.3-71.8) % Lymph % (Auto) (15.8-45.3) % Perry % (Auto) (5.5-15.2) % Eos % (Auto) (0.1-6.8) % Baso % (Auto) (0.3-3.8) % Neut # (Auto) (1.7-6.9) x10-3/uL Lymph # (Auto) (0.5-4.5) x10-3/uL Perry # (Auto) (0.0-1.2) x10-3/uL Eos # (Auto) (0.0-0.6) x10-3/uL Baso # (Auto) (0.0-0.3) x10-3/uL Sodium (135-145) mmol/L Potassium (3.5-5.3) mmol/L Chloride (100-110) mmol/L Carbon Dioxide (21-32) mmol/L BUN (7-18) mg/dL Creatinine (0.70-1.30) mg/dL Est Cr Clr Drug Dosing mL/min Estimated GFR (MDRD) (>60) BUN/Creatinine Ratio (9-20) Glucose (80-116) mg/dL Calcium (8.6-10.2) mg/dL Total Bilirubin (0.1-1.3) mg/dL AST (5-25) IU/L ALT (12-36) U/L Alkaline Phosphatase (56-112) IU/L Total Protein (6.0-8.0) g/dL Albumin (3.2-4.6) g/dL Globulin g/dL Albumin/Globulin Ratio Urine Color Yellow (YELLOW) Urine Appearance Cloudy (CLEAR) Urine pH 7.0 H (5.0-6.5) Ur Specific Dendron 1.010 (1.010-1.025) Urine Protein Negative (NEGATIVE) mg/dL Urine Glucose (UA) Normal (NORMAL) mg/dL Urine Ketones Negative (NEGATIVE) mg/dL Urine Occult Blood Moderate H (NEGATIVE) Urine Nitrite Negative (NEGATIVE) Urine Bilirubin Negative (NEGATIVE) Urine Urobilinogen Normal (NEGATIVE) mg/dL Ur Leukocyte Esterase Large H (NEGATIVE) Urine RBC >100 H (0-5) Urine WBC >100 H (0-5) Ur Squamous Epith Cells Occasional (NS,R,O) Urine Bacteria Many H (NS) SARS-CoV-2 RNA (OCHOA) (NEGATIVE) Meds: Medications Discontinued Medications Generic Name Dose Route Start Last Admin Trade Name Freq PRN Reason Stop Dose Admin Ceftriaxone Sodium 1 gm 06/24/21 18:58 06/24/21 19:08 Ceftriaxone 1 Gm Vial IM 06/24/21 18:59 1 gm ONETIME ONE Administration Departure - Departure Time of Disposition: 19:21 Disposition: Home, Self-Care 01 Condition: Fair Clinical Impression: Urinary tract infection - Discharge Information *PRESCRIPTION DRUG MONITORING PROGRAM REVIEWED*: Not Applicable *COPY OF PRESCRIPTION DRUG MONITORING REPORT IN PATIENT KARYNA: Not Applicable Instructions: Urinary Tract Infection, Adult, [id number] Forms: ED Department Discharge Additional Instructions: Patient likely has urinary tract infection. Discussed with the patient shows that he has had difficulties with UTIs in the past. Patient was given 1 g Rocephin IM and sent home with Bactrim. Patient encouraged to take his medication as directed until completed and to follow-up with his primary care physician. Sepsis Event Note (ED) - Evaluation Sepsis Screening Result: No Definite Risk - Focused Exam Vital Signs: Vital Signs Temp Pulse Resp BP Pulse Ox 06/24/21 17:10 36.8 C 96 18 112/52 L 94 L - My Orders Last 24 Hours: My Active Orders 06/24/21 16:53 Isolation [COMM] Routine 06/24/21 17:19 Orthostatic Vital Signs [RC] ASDIRECTED 06/24/21 18:28 CXR [Chest 2V] [CR] Stat - Assessment/Plan Last 24 Hours: My Active Orders 06/24/21 16:53 Isolation [COMM] Routine 06/24/21 17:19 Orthostatic Vital Signs [RC] ASDIRECTED 06/24/21 18:28 CXR [Chest 2V] [CR] Stat
[2021-06-24] MEDS ORDERED: cefTRIAXone 1 GM Vial IM ONE (18:58)
--- NOTE | 2021-06-26 11:34 | CR ---
CHEST TWO VIEWS INDICATION: Cough. FINDINGS: PA and lateral views of the chest 06/26/21 were compared with 10/30/17 and 08/28/17. The heart is normal in size and shape. There appears to be some minimal calcification in the arch of the aorta. The bony structures appear to be intact. There is a linear density again noted in the mid to upper right lung field compatible with an area of fibrosis in the right upper lobe. An additional smaller linear density in the upper lung field on the right is also likely fibrotic in nature. A definite active infiltrate or effusion was not identified. However, there is bronchial wall cuffing in the mid to lower lung h[place], which may be on the basis of active peribronchial disease and/or fibrosis, and should be correlated clinically. MTDD
== END 2021-06-24 19:31 | disposition home or self-care (01) ==
LOC: FB.ED 16:40
DX: N39.0 Urinary tract infection, site not specified (principal); I48.91 Unspecified atrial fibrillation; I25.10 Atherosclerotic heart disease of native coronary artery without angina pectoris; I25.2 Old myocardial infarction; J44.9 Chronic obstructive pulmonary disease, unspecified; Z95.5 Presence of coronary angioplasty implant and graft; Z79.02 Long term (current) use of antithrombotics/antiplatelets; Z79.899 Other long term (current) drug therapy; Z79.82 Long term (current) use of aspirin; Z87.891 Personal history of nicotine dependence; Z20.822 Contact with and (suspected) exposure to COVID-19
CPT/HCPCS: 36415; 71046; 80053; 81001; 85025; 87086; 87088; 87186; 87804; 96372; 99284; A9270; J0696; U0002